=== PATIENT | female | born 1975 | race Caucasian/White ===

== ENCOUNTER → 2018-12-03 09:30 | Outpatient (CLI) | payer OTHER, SELFPAY ==
--- NOTE | 2018-12-03 09:31 | DI.MG.S_ITS ---
BILATERAL DIGITAL SCREENING MAMMOGRAM 3D/2D WITH CAD: 12/03/2018 CLINICAL: Routine screening. Comparison is made to exam dated: 04/26/2017 [facility]. The tissue of both breasts is heterogeneously dense. This may lower the sensitivity of mammography. Current study was also evaluated with a Computer Aided Detection (CAD) system. No significant masses, calcifications, or other findings are seen in either breast. There has been no significant interval change. IMPRESSION: NEGATIVE There is no mammographic evidence of malignancy. A 1 year screening mammogram is recommended. This exam was interpreted at Station ID: [id number]. NOTE: For mammograms, a report in lay terms will be sent to the patient. Approximately 15% of breast malignancies will not be visualized mammographically. In the management of a palpable breast mass, a negative mammogram must not discourage biopsy of a clinically suspicious lesion. Electronically Signed By: Andreas medellin/jose l:12/03/2018 16:45:42 letter sent: Normal Exam ACR BI-RADS Category 1: Negative [id number]
== END ==
PROVIDERS: Visit Provider Student in an Organized Health Care Education/Training Program
DX: Z12.31 Encounter for screening mammogram for malignant neoplasm of breast (principal)
CPT/HCPCS: 77063; 77067

== ENCOUNTER 2019-03-05 20:03 | Emergency (ER) | payer OTHER, SELFPAY ==
[2019-03-05 20:05] VITALS: BP 161/108; PULSE 82; RESP 19; TEMP 36.7; O2SAT 99; BMI 26.4
--- NOTE | 2019-03-05 20:26 | ED.HA ---
HPI - Headache General Chief Complaint: Headache Stated Complaint: headache for a few days Time Seen by Provider: 03/05/19 20:09 Source: patient Mode of arrival: ambulatory Limitations: no limitations History of Present Illness HPI Narrative: Patient is a 44-year-old female here for evaluation of a headache. she was seen in the walk-in clinic couple days ago. Was given a shot of Toradol. According to that note the patient did report improvement of her symptoms after the Toradol however today the patient stated that her headache really was not much better when she was discharged from the clinic. She denies any fevers or neck pain. No other neurologic symptoms. stated that yesterday her headache seemed to improve and potentially even resolved however today symptoms returned. She does state that it feels little bit different today than what it did earlier this week. She was started on amoxicillin during her prior visit for a diagnosed sinus infection however was not started on any decongestants. Related Data Home Medications Medication Instructions Recorded Confirmed aspirin 81 mg PO QDAY #0 02/28/17 11/05/18 multivitamin [Multiple Vitamins] 1 tab PO QDAY #0 02/28/17 11/05/18 Previous Rx's Medication Instructions Recorded propranolol 20 mg tablet 20 mg PO BID #180 tab 12/05/18 amoxicillin 875 mg-potassium 1 tab PO BID 10 Days #20 tab 03/03/19 clavulanate 125 mg tablet Allergies Allergy/AdvReac Type Severity Reaction Status Date / Time No Known Drug Allergies Allergy Unverified 11/05/18 09:23 Review of Systems Constitutional Constitutional: Denies fatigue, Denies fever(s), Denies frequent falls and Reports headache(s) Eyes Eyes: Denies blurry vision, Denies change in vision and Denies photophobia ENT Ears, Nose, Mouth, and Throat: Denies vertigo, Denies dizziness, Denies ear discharge, Denies facial pain, Reports headache(s), Denies neck pain, Denies nose pain, Denies post nasal drip, Denies tinnitus, Denies sinus pressure, Denies sore throat and Denies throat swelling Cardiovascular Cardiovascular: Denies chest pain, Denies palpitations and Denies dyspnea Respiratory Respiratory: Denies cough and Denies dyspnea Gastrointestinal Gastrointestinal: Denies abdominal pain, Denies nausea and Denies vomiting Genitourinary Genitourinary: Denies dysuria Musculoskeletal Musculoskeletal: Denies back pain, Denies myalgias, Denies arthralgias and Denies neck pain Integumentary/Breasts Skin/Breast: Denies lesions and Denies rash Neurologic Neurologic: Denies behavioral changes, Denies vertigo, Denies dizziness, Denies frequent falls and Reports headache(s) Psychiatric Psychiatric: Denies behavioral changes Endocrine Endocrine: Denies fatigue and Denies palpitations Hematologic/Lymphatic Hematologic/Lymphatic: Denies easy bleeding and Denies easy bruising Allergic/Immunologic Allergic/Immunologic: Denies throat swelling [facility] Medical History Chicken pox (Resolved ~1980) Hypertension (Chronic) Ovarian cyst (Chronic) Surgical History (Updated 11/04/18 @ 21:45 by Matilde Layne) Atrial fibrillation (Resolved ~2015) Family History (Updated 03/01/19 @ 20:32 by Matilde Layne) Brother Age: 37 History of palpitations Father Age: 71 Essential hypertension Atrial fibrillation, unspecified type Hyperlipidemia Mother Age: 69 History of skin cancer Grandfather No problems noted. Grandfather History of heart disease Cancer Grandmother Cancer Grandmother Stroke Social History Smoking Status: Never smoker Family History (Updated 03/01/19 @ 20:32 by Matilde Layne) Brother Age: 37 History of palpitations Father Age: 71 Essential hypertension Atrial fibrillation, unspecified type Hyperlipidemia Mother Age: 69 History of skin cancer Grandfather No problems noted. Grandfather History of heart disease Cancer Grandmother Cancer Grandmother Stroke Social History Smoking Status: Never smoker Exam Initial Vital Signs Initial Vital Signs: Vital Signs Temperature 98.1 F 03/05/19 20:05 Pulse Rate 82 03/05/19 20:05 Respiratory Rate 19 03/05/19 20:05 Blood Pressure 161/108 H 03/05/19 20:05 Pulse Oximetry 99 03/05/19 20:05 Const General: cooperative, comfortable, well developed and well groomed Orientation: alert, awake and oriented x3 HENMT Head: normal to inspection and normocephalic Ears: TM normal on the left and TM abnormal bulging on the right; not with effusion and not erythematous Eyes Pupils: PERRL Resp Effort & Inspection: normal respiratory effort Cardio Rate: regular rate Skin Lesions: no lesions Rashes: no rashes Neuro General: alert, awake and oriented x3 Cranial Nerves: CN's II-XI intact bilaterally Cognition: normal cognition Speech: speech normal Gait: normal gait Motor: muscle tone normal throughout Sensory Exam: no sensory deficits noted Extrem General: normal to inspection and capillary refill normal Psych Appearance: grossly normal and well kempt Scores GCS [place] coma scale eye opening: Spontaneous [place] coma scale verbal response: Orientated [place] coma scale motor response: Obey commands Main[place] coma scale total score: 15 Course Orders Ordered: ED Orders 03/05/19 20:26 CT head/brain wo con Stat Vital Signs Vital signs: Vital Signs - 8 hr 03/05/19 20:05 03/05/19 21:08 Temperature 98.1 F Pulse Rate 82 70 Respiratory Rate 19 17 Blood Pressure 161/108 H Blood Pressure [Left Arm] 132/94 H Pulse Oximetry 99 99 MDM - Headache Imaging Data CT scan - head: Radiologist's impression: [place] [address] CT Scan Report Signed Patient: Liss Cuevas CMR#: [id number] : 1975Acct:[id number] Age/Sex: 44 / FDate of Service: 03/05/19 Loc: ED Accession Number: [id number] Procedure: CT head/brain wo con Ordering Provider: Carlo Hagen D.O. PROCEDURE: CT HEAD/BRAIN WO CON INDICATIONS: Right-sided headache for 4 days TECHNIQUE: Noncontrast 4.5 mm thick angled axial sections acquired from the foramen magnum to the vertex, with coronal and sagittal reformats. For radiation dose reduction, the following was used: automated exposure control, adjustment of mA and/or kV according to patient size. COMPARISON: None. FINDINGS: Image quality: Excellent. CSF spaces: Basal cisterns are patent. No extra-axial fluid collections. Ventricles are normal in size and shape. Brain: No midline shift. No intracranial masses or hemorrhage. Man[place]-white matter interface is normal. Skull and face: Calvarium and visualized facial bones are intact, without suspicious lesions. Sinuses: Visualized sinuses and mastoids are clear. IMPRESSION: No acute intracranial disease process. Dictated by: Wilda Mazariegos MD, PhD on 03/05/2019 at 20:44 Approved by: Wilda Mazariegos MD, PhD on 03/05/2019 at 20:45 [facility] Narrative Medical decision making narrative: Patient has a normal neuro exam. She does have fluid behind the right tympanic membrane. She stated that she does get worsening headache when she bends over. Her symptoms very well could be sinus issues. She is currently on antibiotics. Will start her on decongestants. Had a long discussion regarding her symptoms. patient was very concerned about her symptoms. I informed her that felt that head CT would be relatively unhelpful in her situation is I felt it she had a low likelihood of having an intracranial mass or hemorrhage. she stated that she would like the head CT despite our conversations of the risks and benefits. This ultimately was unremarkable. I did inform her that to continue the workup for subarachnoid hemorrhage we would need to perform a lumbar puncture. Informed her that I do have a low suspicion that this was the cause of her symptoms she agreed and would like to hold on the lumbar puncture. She denies any IV medications here in the emergency department. I do suspect that this is a sinus headache. We discussed return precautions and follow-up instructions. She expressed understanding and agreement with plan. Discharge Plan Departure Patient Disposition: Home Clinical Impression: Headache Qualifiers: Headache type: unspecified Headache chronicity pattern: unspecified pattern Intractability: not intractable Qualified Code(s): R51 - Headache Discharge Date/Time: 03/05/19 21:13 Instructions: DI for Headache Activity Restrictions/Additional Instructions: Recommend that you start on a decongestant such as Claritin or Soumya or Zyrtec or 1 of the generic versions these. You can also start on Nasonex or Flonase or the generic versions of these. Contact your primary provider for follow-up. Continue your antibiotics. Prescriptions: No Action amoxicillin-pot clavulanate [Augmentin] 875-125 mg tablet 1 tab PO BID 10 Days Qty: 20 RF: 0 multivitamin [Multiple Vitamins] 1 EACH tablet 1 tab PO QDAY Qty: 0 RF: 0 aspirin 81 MG tablet,delayed release (DR/EC) 81 mg PO QDAY Qty: 0 RF: 0 propranolol 20 mg tablet 20 mg PO BID Qty: 180 RF: 1 Referrals: Raghu Machado MD [Primary Care Provider] -
--- NOTE | 2019-03-05 20:58 | PC.NURSE ---
Pt reports has had headache since saturday. Was seen at walkin clinic on saturday. Reports headache started to feel better until this evening when pain started again but different. states for electric shock with dizziness.
[2019-03-05 21:08] VITALS: BP 132/94; PULSE 70; RESP 17; O2SAT 99
== END 2019-03-05 21:13 | disposition home or self-care (01) ==
PROVIDERS: Emergency Provider Emergency Medicine; PCP Student in an Organized Health Care Education/Training Program
DX: R51 Headache (principal)
CPT/HCPCS: 70450; 99282; 99284

== ENCOUNTER → 2019-03-25 07:09 | Outpatient (CLI) | payer OTHER, SELFPAY ==
[2019-03-25 08:25] LABS: Alanine Aminotransferase 12 IU/L (9-52); Albumin 4.6 g/dL (3.5-5.0); Albumin Globulin Ratio 1.7 (1.0-2.8); Alkaline Phosphatase 36 U/L (38-126); Aspartate Aminotransferase 22 IU/L (14-36); BUN Creatinine Ratio 18.6 (6-22); Bilirubin Total 0.7 mg/dL (0.2-1.3); Blood Urea Nitrogen 13 mg/dL (7-17); Calcium 9.7 mg/dL (8.4-10.2); Carbon Dioxide 27 mmol/L (22-32); Chloride 104 mmol/L (98-107); Cholesterol 170 mg/dL (140-199); Estimated Glomerular Filt Rate > 60.0 mL/min (>60); Globulin 2.7 g/dL (1.7-4.1); Glucose 113 mg/dL (70-100); HDL Cholesterol 61 mg/dL (40-60); HEMOLYSIS < 15 (0-50); LDL Cholesterol Calculated 93 mg/dL (<100); Potassium 4.4 mmol/L (3.4-5.1); Sodium 140 mmol/L (137-145); Total Protein 7.3 g/dL (6.3-8.2); Triglycerides 78 mg/dL (35-150)
[2019-03-25 08:38] LABS: Free T3, Triiodothyronine Free 3.51 pg/mL (2.77-5.27)
[2019-03-25 08:52] LABS: TSH w/ Reflex to FT4 2.36 uIU/mL (0.47-4.68)
[2019-03-25 09:11] LABS: Vitamin D 25 Hydroxy (D3) 31.4 ng/mL (30.0-100.0)
== END ==
PROVIDERS: PCP Student in an Organized Health Care Education/Training Program; Visit Provider Internal Medicine Cardiovascular Disease
DX: I48.0 Paroxysmal atrial fibrillation (principal); I48.91 Unspecified atrial fibrillation; F41.1 Generalized anxiety disorder; Z13.220 Encounter for screening for lipoid disorders; E55.9 Vitamin D deficiency, unspecified
CPT/HCPCS: 36415; 80053; 80061; 82306; 84443; 84481

== ENCOUNTER 2020-02-05 01:01 | Emergency (ER) | payer OTHER, SELFPAY ==
[2020-02-05] VITALS (16 sets, daily range): BP systolic 108–123; BP diastolic 77–86; PULSE 72–161; RESP 13–22; TEMP 36.6; O2SAT 91–99; BMI 26.4
--- NOTE | 2020-02-05 01:02 | ED_ITS ---
HPI - SOB/Dyspnea General Chief Complaint: Arrhythmia/Palpitations Stated Complaint: difficulty breathing has a fib/states in afib Time Seen by Provider: 02/05/20 01:02 Source: patient and family Mode of arrival: Ambulatory Limitations: no limitations History of Present Illness HPI Narrative: 44-year-old female nonsmoker with history of atrial fibrillation with scheduled ablation for next month with Cardiology at [place] presents with her and a chief complaint of a few days of rapid heart rate, palpit ations, shortness of breath and ?gurgling? in her chest. She is not dizzy, weak or lightheaded. She does not take any anticoagulation. She denies any change in medications or diet. She has had an ablation in the past and has failed attempts at electrocardioversion on multiple occasions. She denies any runny nose, sore throat, cough, or fever. She denies any exposure to persons known to be positive for COVID-19. MD Complaint: shortness of breath Onset (ago): day(s) Severity: moderate Consistency/Duration: intermittent Relieving factors: nothing Exacerbating factors: nothing Treatment prior to arrival: none Related Data Home oxygen amount: none Home Medications Medication Instructions Recorded Confirmed aspirin 81 mg PO QDAY #0 02/28/17 11/05/18 multivitamin [Multiple Vitamins] 1 tab PO QDAY #0 02/28/17 11/05/18 flecainide 50 mg tablet 50 mg PO Q12H 07/10/19 Previous Rx's Medication Instructions Recorded propranolol 20 mg tablet 20 mg PO BID #180 tab 07/23/19 Allergies Allergy/AdvReac Type Severity Reaction Status Date / Time No Known Drug Allergies Allergy Unverified 11/05/18 09:23 Review of Systems Constitutional Constitutional: Denies chills, Denies fatigue, Denies fever(s), Denies frequent falls, Denies lethargy and Denies weakness Eyes Eyes: Denies change in vision, Denies eye discharge, Denies irritation and Denies loss of vision ENT Ears, Nose, Mouth, and Throat: Denies change in voice, Denies dizziness, Denies neck pain, Denies sore throat and Denies throat swelling Cardiovascular Cardiovascular: Denies chest pain, Denies irregular heart rhythm, Denies lightheadedness, Reports palpitations, Reports dyspnea, Denies dyspnea on exertion and Denies orthopnea Respiratory Respiratory: Denies cough, Reports dyspnea, Denies dyspnea on exertion and Denies wheezing Gastrointestinal Gastrointestinal: Denies abdominal pain, Denies change in bowel habits, Denies diarrhea, Denies nausea and Denies vomiting Musculoskeletal Musculoskeletal: Denies neck pain and Denies numbness Integumentary/Breasts Skin/Breast: Denies pruritus, Denies erythema, Denies rash and Denies wounds Neurologic Neurologic: Denies behavioral changes, Denies confusion, Denies dizziness, Denies frequent falls, Denies loss of vision, Denies numbness and Denies weakness Psychiatric Psychiatric: Denies anxiety, Denies behavioral changes, Denies confusion, Denies depression, Denies homicidal ideation and Denies suicidal ideation Endocrine Endocrine: Denies fatigue, Denies flushing and Reports palpitations Hematologic/Lymphatic Hematologic/Lymphatic: Denies easy bruising Allergic/Immunologic Allergic/Immunologic: Denies urticaria, Denies throat swelling and Denies wheezing Patient History Medical History Chicken pox (Resolved ~1980) Hypertension (Chronic) Ovarian cyst (Chronic) Surgical History Atrial fibrillation (Resolved ~2015) Family History Brother Age: 38 History of palpitations Father Age: 72 Essential hypertension Atrial fibrillation, unspecified type Hyperlipidemia Mother Age: 70 History of skin cancer Grandfather No problems noted. Grandfather History of heart disease Cancer Grandmother Cancer Grandmother Stroke Social History Smoking Status: Never smoker Smoking Status: Never smoker Exam Narrative Exam Narrative: GENERAL: [44] year old patient appears stated age. Well- nourished, well-developed patient, in moderate distress. Anxious HEAD: Atraumatic. Normocephalic. EYES: Pupils equal round and reactive. Extraocular motions intact. No scleral icterus. No injection or drainage. ENT: Nose without bleeding, purulent drainage. Throat without erythema, tonsillar hypertrophy or exudate. Airway patent. NECK: Trachea midline. Non tender CARDIOVASCULAR: Rapid and irregular rhythm without murmurs, gallops, or rubs. RESPIRATORY: Clear to auscultation. Breath sounds equal bilaterally. No wheezes, rales, or rhonchi. GASTROINTESTINAL: Abdomen soft, non-tender, nondistended. EXTREMITIES: No edema or joint tenderness. BACK: Nontender without deformity or crepitance. No flank tenderness. NEURO: AOx3. SKIN: No rash or erythema of visible areas Initial Vital Signs Initial Vital Signs: Vital Signs Pulse Oximetry 98 02/05/20 01:05 Course Orders Ordered: ED Orders 02/05/20 01:05 EKG-12 Lead Stat 02/05/20 01:11 XR chest 1V Stat 02/05/20 01:13 Basic Metabolic Panel Stat Complete Blood Count AUTO DIFF Stat Magnesium Stat Thyroid Stimulating Hormone Stat Troponin & CK Cardiac Panel Stat Sodium Chloride (Normal Saline 0.9%) 1,000 mls @ 150 mls/hr IV CONT REAL Last Infusion: 02/05/20 05:12 Dose: 0 mls/hr Documented by: Admin: 02/05/20 01:27 Dose: 150 mls/hr Documented by: SARANYA DILTIAZEM (Diltiazem 125 Mg/125 Ml-D5w) 125 mg in 125 mls @ 5 mls/hr IV TITRATE REAL; Protocol Last Titration: 02/05/20 05:15 Dose: 0 mg/hr, 0 mls/hr Documented by: Titration: 02/05/20 02:05 Dose: 10 mg/hr, 10 mls/hr Documented by: Admin: 02/05/20 01:27 Dose: 5 mg/hr, 5 mls/hr Documented by: SARANYA Discontinued Medications Diltiazem HCl (Cardizem) 10 mg IV NOW ONE Stop: 02/05/20 01:11 Last Admin: 02/05/20 01:26 Dose: 10 mg Documented by: SARANYA Lorazepam (Ativan) 0.5 mg IV NOW ONE Stop: 02/05/20 02:53 Last Admin: 02/05/20 03:08 Dose: 0.5 mg Documented by: SARANYA Reevaluation(s) Reevaluation #1: HR down to upper 90s after cardizem push. Drip ordered patient doing well on drip at 10 (in 90s-110s) call to Dr. Kwok (cardio at [facility]) who wishes patient be sent up there given her history and upcoming ablation. patient is [place] patient, call to [facility] who gives blessing to transfer patient to [facility] to maintain continuity of care 0350 - Dr. Clifford (hospitalist at [facility]) is happy to accept. [facility] sup ervisor calls back stating there is an issue with bed availability which should resolve by 0700 and that we should send patient to ED. 0400 - call to Dr. Felix in the ED who is happy to accept the patient any time. [facility] contacted for transport. Patient and family in complete agreement with the plan. Vital Signs Vital signs: Vital Signs - 8 hr 02/05/20 01:05 02/05/20 01:10 02/05/20 01:11 Temperature 98 F Pulse Rate 158 H 72 Respiratory Rate 22 Blood Pressure 118/85 118/85 Pulse Oximetry 98 98 99 02/05/20 01:26 02/05/20 01:30 02/05/20 01:39 Temperature Pulse Rate 161 H 153 H 126 H Respiratory Rate 14 16 Blood Pressure 118/85 116/85 Pulse Oximetry 96 93 02/05/20 02:00 02/05/20 02:01 02/05/20 02:30 Temperature Pulse Rate 114 H 121 H 106 H Respiratory Rate 21 20 18 Blood Pressure 114/82 Pulse Oximetry 93 94 93 02/05/20 02:31 02/05/20 03:00 02/05/20 03:04 Temperature Pulse Rate 107 H 102 H 100 H Respiratory Rate 16 13 15 Blood Pressure 114/85 115/77 Pulse Oximetry 93 93 93 02/05/20 03:30 02/05/20 04:00 02/05/20 04:30 Temperature Pulse Rate 107 H 97 H 99 H Respiratory Rate 20 15 21 Blood Pressure 123/86 108/80 Pulse Oximetry 91 92 95 02/05/20 04:31 Temperature Pulse Rate 93 H Respiratory Rate 19 Blood Pressure 113/77 Pulse Oximetry 95 MDM - SOB/Dyspnea Lab Data Result diagrams: 02/05/20 01:13 02/05/20 01:13 Labs: Lab Results 02/05/20 02/05/20 02/05/20 Range/Units 01:13 01:13 01:13 WBC 13.0 H (4.5-11.0) X10^3/uL RBC 4.97 (4.0-5.2) X10^6/uL Hgb 15.6 (12.0-16.0) g/dL Hct 46.7 H (36-46) % MCV 93.9 (80-100) fL MCH 31.4 (26-34) PG MCHC 33.4 (30-36) % RDW 15.1 H (11.6-14.8) % Plt Count 261 (150-400) X10^3/uL Neut % (Auto) 45.9 L (50-75) % Lymph % (Auto) 46.3 H (25-40) % [place] % (Auto) 5.9 (3-14) % Eos % (Auto) 1.1 L (2-4) % Baso % (Auto) 0.8 (0-2) % Neut # (Auto) 6000 (1881-8411) /uL Lymph # (Auto) 6000 H (5796-7762) /uL [place] # (Auto) 800 (0-900) /uL Eos # (Auto) 100 (0-450) /uL Baso # (Auto) 100 (0-100) /uL Sodium 134 L (137-145) mmol/L Potassium 4.5 (3.4-5.1) mmol/L Chloride 105 (98-107) mmol/L Carbon Dioxide 17 L (22-32) mmol/L BUN 14 (7-17) mg/dL Creatinine 0.74 (0.52-1.04) mg/dL Estimated GFR > 60.0 (>60) mL/min BUN/Creatinine Ratio 18.9 (6-22) Glucose 149 H (70-100) mg/dL Calcium 9.7 (8.4-10.2) mg/dL Magnesium 1.9 (1.6-2.3) mg/dL Total Creatine Kinase 40 (30-135) U/L CK-MB (CK-2) TNP CK-MB (CK-2) Rel Index TNP Troponin I 0.015 (0.01-0.034) ng/mL TSH 8.03 H (0.47-4.68) uIU/mL ECG Data Attestation: I personally reviewed and interpreted this ECG as follows: Interpretation: Rapid AFib, rate 162. No ST depressions or elevations. Critical Care Time Critical Care Time Critical Care Time: Yes Total Critical Care Time: 30 Attestation: The high probability of a clinically significant, sudden or life threatening deterioration of the [CV] system(s) required my full and direct attention, intervention and personal management. The aggregate critical care time was [30] minutes. This time is in addition to time spent performing reported procedures but includes the following: [x] Data Review and interpretation [x] Patient assessment and monitoring of vital signs [x] Documentation [x] Medication orders and management Discharge Plan Departure Patient Disposition: [facility] Clinical Impression: Atrial fibrillation with rapid ventricular response Prescriptions: No Action multivitamin [Multiple Vitamins] 1 EACH tablet 1 tab PO QDAY Qty: 0 RF: 0 aspirin 81 MG tablet,delayed release (DR/EC) 81 mg PO QDAY Qty: 0 RF: 0 flecainide 50 mg tablet 50 mg PO Q12H RF: 0 propranolol 20 mg tablet 20 mg PO BID Qty: 180 RF: 3 Referrals: Raghu Machado MD [Primary Care Provider] -
--- NOTE | 2020-02-05 01:11 | DI.RAD.S_ITS ---
PROCEDURE: XR CHEST 1V INDICATIONS: chest pain, palpitations TECHNIQUE: One view of the chest was acquired. COMPARISON: None. FINDINGS: Surgical changes and devices: None. Lungs and pleura: Bilateral interstitial prominence which septal thickening. Lungs are clear. No pleural effusions or pneumothorax. Mediastinum: Mediastinal contours appear normal. Heart size is normal. Bones and chest wall: No suspicious bony lesions. Overlying soft tissues appear unremarkable. IMPRESSION: Bilateral interstitial prominence with septal thickening. Differential diagnosis include interstitial lung disease versus pulmonary edema. Dictated by: Kyree Jo M.D. on 02/05/2020 at 9:40 Approved by: Kyree Jo M.D. on 02/05/2020 at 9:41
[2020-02-05 01:24] LABS: Add Manual Diff / Slide Review NO; Basophils Absolute Auto 100 /uL (0-100); Basophils Percent Auto 0.8 % (0-2); Eosinophils Absolute Auto 100 /uL (0-450); Eosinophils Percent Auto 1.1 % (2-4); Hematocrit 46.7 % (36-46); Hemoglobin 15.6 g/dL (12.0-16.0); Lymphocytes Absolute Auto 6000 /uL (1100-4500); Lymphocytes Percent Auto 46.3 % (25-40); Mean Corpuscular HGB Conc 33.4 % (30-36); Mean Corpuscular Hemoglobin 31.4 PG (26-34); Mean Corpuscular Volume 93.9 fL (80-100); Monocytes Absolute Auto 800 /uL (0-900); Monocytes Percent Auto 5.9 % (3-14); Neutrophils Absolute Auto 6000 /uL (1500-7000); Neutrophils Percent Auto 45.9 % (50-75); Platelet Count 261 X10^3/uL (150-400); Red Blood Cell Count 4.97 X10^6/uL (4.0-5.2); Red Cell Distribution Width 15.1 % (11.6-14.8)
[2020-02-05] MEDS: dilTIAZem 5 MG/ML SDV 10 MG IV (01:26)
[2020-02-05] MEDS: DILTIAZEM 125 MG/125 ML PIGGYBACK IV (01:27)
[2020-02-05] MEDS: SODIUM CHLORIDE 0.9% 1,000 ML 150 ML IV (01:27)
[2020-02-05 01:31] LABS: BUN Creatinine Ratio 18.9 (6-22); Blood Urea Nitrogen 14 mg/dL (7-17); Calcium 9.7 mg/dL (8.4-10.2); Carbon Dioxide 17 mmol/L (22-32); Chloride 105 mmol/L (98-107); Creatine Kinase 40 U/L (30-135); Estimated Glomerular Filt Rate > 60.0 mL/min (>60); Glucose 149 mg/dL (70-100); HEMOLYSIS < 15 (0-50); Magnesium 1.9 mg/dL (1.6-2.3); Potassium 4.5 mmol/L (3.4-5.1); Sodium 134 mmol/L (137-145)
[2020-02-05 01:43] LABS: Troponin I 0.015 ng/mL (0.01-0.034)
[2020-02-05 02:16] LABS: Thyroid Stimulating Hormone 8.03 uIU/mL (0.47-4.68)
[2020-02-05] MEDS: LORazepam 2 MG/ML INJ 0.5 MG IV (03:08)
== END 2020-02-05 05:32 | disposition short-term general hospital (02) ==
PROVIDERS: Emergency Provider Emergency Medicine; PCP Student in an Organized Health Care Education/Training Program
DX: I48.20 Chronic atrial fibrillation, unspecified (principal); R06.02 Shortness of breath
CPT/HCPCS: 36415; 71045; 80048; 82550; 83735; 84443; 84484; 85025; 93005; 96365; 96366; 96375; 99284; 99291; J2060

== ENCOUNTER → 2020-02-10 08:30 | Outpatient (CLI) | payer OTHER, SELFPAY ==
[2020-02-10 09:27] LABS: BUN Creatinine Ratio 15.5 (6-22); Blood Urea Nitrogen 11 mg/dL (7-17); Carbon Dioxide 22 mmol/L (22-32); Chloride 105 mmol/L (98-107); Estimated Glomerular Filt Rate > 60.0 mL/min (>60); Glucose 107 mg/dL (70-100); HEMOLYSIS < 15 (0-50); Potassium 4.5 mmol/L (3.4-5.1); Sodium 138 mmol/L (137-145)
== END ==
PROVIDERS: PCP Student in an Organized Health Care Education/Training Program; Referring Provider Internal Medicine Cardiovascular Disease; Visit Provider Internal Medicine Cardiovascular Disease
DX: I48.0 Paroxysmal atrial fibrillation (principal)
CPT/HCPCS: 36415; 80048

== ENCOUNTER 2020-02-14 19:39 | Emergency (ER) | payer OTHER, SELFPAY ==
[2020-02-14] VITALS (60 sets, daily range): BP systolic 91–144; BP diastolic 55–107; PULSE 88–188; RESP 14–28; TEMP 36.7; O2SAT 92–99
--- NOTE | 2020-02-14 19:41 | ED_ITS ---
HPI - Abdominal Pain General Chief Complaint: Shortness of Breath/Dyspnea Stated Complaint: abdominal discomfort,weakness Time Seen by Provider: 02/14/20 19:41 Source: patient Mode of arrival: Ambulatory Limitations: no limitations History of Present Illness HPI narrative: 44-year-old female never smoker with history of atrial fibrillation presents with a week of worsening shortness of breath, fatigue, and difficulty sleeping. She was seen one week ago under fairly similar circumstances and was transferred to [place] a.. She has established with electro physiology (Dr. Steiner) and has a scheduled ablation. She was admitted overnight and discharged on Pradaxa and had been switched from propranolol to metoprolol. Over the course of the week she has had the above- stated symptoms in addition to epigastric pain that is worse with eating or drinking and radiates to her back. She has had no fever chills and admits to nausea but denies any vomiting. Related Data Home Medications Medication Instructions Recorded Confirmed multivitamin [Multiple Vitamins] 1 tab PO QDAY #0 02/28/17 02/14/20 dabigatran etexilate [Pradaxa] 150 mg PO BID 02/14/20 02/14/20 metoprolol succinate 25 mg PO DAILY 02/14/20 02/14/20 Previous Rx's Medication Instructions Recorded lorazepam 0.5 mg tablet 0.5 mg PO BID PRN #60 tab 02/10/20 Allergies Allergy/AdvReac Type Severity Reaction Status Date / Time No Known Drug Allergies Allergy Verified 02/14/20 19:50 Review of Systems Constitutional Constitutional: Denies chills, Denies fatigue, Denies fever(s), Denies frequent falls, Denies lethargy and Denies weakness Eyes Eyes: Denies change in vision, Denies eye discharge, Denies irritation and Denies loss of vision ENT Ears, Nose, Mouth, and Throat: Denies change in voice, Denies dizziness, Denies neck pain, Denies sore throat and Denies throat swelling Cardiovascular Cardiovascular: Reports chest pain, Reports irregular heart rhythm, Reports palpitations, Reports dyspnea, Reports dyspnea on exertion and Denies orthopnea Respiratory Respiratory: Denies cough, Reports dyspnea, Reports dyspnea on exertion and Denies wheezing Gastrointestinal Gastrointestinal: Reports abdominal pain, Denies change in bowel habits, Denies diarrhea, Reports nausea and Denies vomiting Musculoskeletal Musculoskeletal: Denies neck pain and Denies numbness Integumentary/Breasts Skin/Breast: Denies pruritus, Denies erythema, Denies rash and Denies wounds Neurologic Neurologic: Denies behavioral changes, Denies confusion, Denies dizziness, Denies frequent falls, Denies loss of vision, Denies numbness and Denies weakness Psychiatric Psychiatric: Denies anxiety, Denies behavioral changes, Denies confusion, Denies depression, Denies homicidal ideation and Denies suicidal ideation Endocrine Endocrine: Denies fatigue, Denies flushing and Reports palpitations Hematologic/Lymphatic Hematologic/Lymphatic: Denies easy bruising Allergic/Immunologic Allergic/Immunologic: Denies urticaria, Denies throat swelling and Denies wheezing Patient History Medical History Chicken pox (Resolved ~1980) Hypertension (Chronic) Ovarian cyst (Chronic) Surgical History Atrial fibrillation (Resolved ~2015) Family History Brother Age: 38 History of palpitations Father Age: 72 Essential hypertension Atrial fibrillation, unspecified type Hyperlipidemia Mother Age: 70 History of skin cancer Grandfather No problems noted. Grandfather History of heart disease Cancer Grandmother Cancer Grandmother Stroke Social History Smoking Status: Never smoker Smoking Status: Never smoker alcohol intake frequency: a few times a week Substance Use Type: does not use Exam Narrative Exam Narrative: GENERAL: [44] year old patient appears stated age. Well- nourished, well-developed patient, in moderate distress, clearly short of breath. Anxious HEAD: Atraumatic. Normocephalic. EYES: Pupils equal round and reactive. Extraocular motions intact. No scleral icterus. No injection or drainage. ENT: Nose without bleeding, purulent drainage. Throat without erythema, tonsillar hypertrophy or exudate. Airway patent. NECK: Trachea midline. Non tender CARDIOVASCULAR: Tachycardic and irregular rhythm without murmurs, gallops, or rubs. RESPIRATORY: Tachypnea, 5-7 word sentences, crackles in bilateral bases GASTROINTESTINAL: Abdomen soft, tender in the epigastrium and right upper quadrant nondistended. EXTREMITIES: No edema or joint tenderness. BACK: Nontender without deformity or crepitance. No flank tenderness. NEURO: AOx3. SKIN: No rash or erythema of visible areas Initial Vital Signs Initial Vital Signs: Vital Signs Temperature 98.1 F 02/14/20 19:40 Pulse Rate 88 02/14/20 19:40 Respiratory Rate 25 H 02/14/20 19:40 Blood Pressure 131/107 H 02/14/20 19:40 Pulse Oximetry 96 02/14/20 19:40 Course Course Course Narrative: Given her history on beta-blockers patient was initially started on esmolol. After call to hospitalist we elected to switch her to Cardizem which she tolerated well last time and would allow her to be admitted on a general medical floor as opposed to ICU. Her heart rate has responded nicely and she is now down in the 110s. Her shortness of breath and anxiety have greatly improved. Her epigastric pain is confirmed to be acute acalculous cholecystitis based on labs and imaging. I have spoken with the general surgeon (Dr. Chambers) who is in agreement with keeping her NPO, administering fluids and antibiotics and allowing medicine to sort through her tachycardia and hyponatremia. I have spoken with [facility] who gives their blessing for this transfer Orders Ordered: ED Orders 02/14/20 19:46 XR chest 1V Stat 02/14/20 19:48 EKG-12 Lead Stat 02/14/20 20:00 BNP [NT-proBNP (BNP-Adult 18+)] Stat Complete Blood Count AUTO DIFF Stat Comprehensive Metabolic Panel Stat Lipase Stat Partial Thromboplastin Time Stat Prothrombin Time INR Stat Troponin & CK Cardiac Panel Stat 02/14/20 20:46 US abdomen limited Stat DILTIAZEM (Diltiazem 125 Mg/125 Ml-D5w) 125 mg in 125 mls @ 5 mls/hr IV TITRATE REAL; Protocol Last Titration: 02/14/20 23:10 Dose: 10 mg/hr, 10 mls/hr Documented by: Admin: 02/14/20 22:21 Dose: 5 mg/hr, 5 mls/hr Documented by: GERALD Discontinued Medications Esmolol HCl (Brevibloc) 2.5 gm in 250 mls @ 25.855 mls/hr IV TITRATE REAL; Protocol Last Titration: 08/23/20 22:17 Dose: 0 mcg/kg/min, 0 mls/hr Documented by: Titration: 02/14/20 20:33 Dose: 98.63 mcg/kg/min, 51 mls/hr Documented by: Titration: 02/14/20 20:26 Dose: 48.35 mcg/kg/min, 25 mls/hr Documented by: Admin: 02/14/20 20:22 Dose: 493.14 mcg/kg/min, 255 mls/hr Documented by: GERALD Piperacillin/Tazobactam/Dextrose (Zosyn) 3.375 gm in 50 mls @ 100 mls/hr IV NOW ONE Stop: 02/14/20 22:18 Last Admin: 02/14/20 21:58 Dose: 100 mls/hr Documented by: GERALD Sodium Chloride (Normal Saline 0.9%) 1,000 mls @ 1,000 mls/hr IV BOLUS ONE Stop: 02/14/20 23:18 Last Admin: 02/14/20 22:37 Dose: Not Given Documented by: EDWIN Piperacillin/Tazobactam/Dextrose (Zosyn) 3.375 gm in 50 mls @ 100 mls/hr IV NOW ONE Stop: 02/14/20 22:51 Last Admin: 02/14/20 22:37 Dose: Not Given Documented by: EDWIN Ketorolac Tromethamine (Toradol) 15 mg IV NOW ONE Stop: 02/14/20 22:20 Last Admin: 02/14/20 22:37 Dose: Not Given Documented by: EDWIN Consultations Consultation #1: [facility] Physician at [facility] for transfer Consultation #2: Dr. Samuels (hospitalist at [facility]) happy to accept. Suggests switching Esmolol to Cardizem, and call to surgery prior to transfer if possible Consultation #3: Dr. Chambers (Surgery at [place]) agrees with ABX and transfer to medicine Vital Signs Vital signs: Vital Signs - 8 hr 02/14/20 19:40 02/14/20 19:43 02/14/20 19:53 Temperature 98.1 F Pulse Rate 88 94 H 188 H Respiratory Rate 25 H Blood Pressure 131/107 H 131/107 H Pulse Oximetry 96 99 95 02/14/20 19:56 02/14/20 20:00 02/14/20 20:01 Temperature Pulse Rate 171 H 173 H 169 H Respiratory Rate 22 22 27 H Blood Pressure 129/104 H 141/92 H Pulse Oximetry 96 95 96 02/14/20 20:15 02/14/20 20:20 02/14/20 20:24 Temperature Pulse Rate 176 H 169 H 172 H Respiratory Rate 27 H 28 H 22 Blood Pressure 130/105 H 141/91 H Pulse Oximetry 96 96 96 02/14/20 20:25 02/14/20 20:26 02/14/20 20:30 Temperature Pulse Rate 173 H 162 H 156 H Respiratory Rate 21 26 H 23 Blood Pressure 140/81 Pulse Oximetry 96 96 97 02/14/20 20:31 02/14/20 20:35 02/14/20 20:40 Temperature Pulse Rate 159 H 152 H 150 H Respiratory Rate 20 24 24 Blood Pressure 144/75 H 123/82 Pulse Oximetry 96 95 95 02/14/20 20:42 02/14/20 20:45 02/14/20 20:50 Temperature Pulse Rate 145 H 143 H 134 H Respiratory Rate 23 27 H 21 Blood Pressure 109/69 105/72 96/66 Pulse Oximetry 94 95 95 02/14/20 20:55 02/14/20 21:00 02/14/20 21:05 Temperature Pulse Rate 143 H 139 H 137 H Respiratory Rate 17 20 25 H Blood Pressure 95/61 108/72 102/70 Pulse Oximetry 95 94 93 02/14/20 21:10 02/14/20 21:15 02/14/20 21:20 Temperature Pulse Rate 138 H 143 H 147 H Respiratory Rate 15 16 19 Blood Pressure 106/59 L 101/55 L 93/68 Pulse Oximetry 97 97 95 02/14/20 21:25 02/14/20 21:30 02/14/20 21:33 Temperature Pulse Rate 138 H 137 H 141 H Respiratory Rate 19 19 20 Blood Pressure 94/77 93/66 Pulse Oximetry 94 92 94 02/14/20 21:35 02/14/20 21:40 02/14/20 21:45 Temperature Pulse Rate 143 H 140 H 136 H Respiratory Rate 18 18 14 Blood Pressure 96/76 94/75 95/78 Pulse Oximetry 94 93 95 02/14/20 21:50 02/14/20 21:55 02/14/20 22:00 Temperature Pulse Rate 138 H 135 H 136 H Respiratory Rate 16 19 25 H Blood Pressure 110/92 H 103/83 109/80 Pulse Oximetry 93 92 95 02/14/20 22:05 02/14/20 22:06 02/14/20 22:10 Temperature Pulse Rate 141 H 125 H 124 H Respiratory Rate 18 17 17 Blood Pressure 91/74 Pulse Oximetry 94 93 95 02/14/20 22:15 02/14/20 22:16 02/14/20 22:20 Temperature Pulse Rate 137 H 133 H 141 H Respiratory Rate 19 18 18 Blood Pressure 128/60 120/62 Pulse Oximetry 95 94 95 02/14/20 22:25 02/14/20 22:30 02/14/20 22:31 Temperature Pulse Rate 146 H 152 H 159 H Respiratory Rate 23 26 H 24 Blood Pressure 112/71 117/88 Pulse Oximetry 96 95 96 02/14/20 22:35 02/14/20 22:36 02/14/20 22:40 Temperature Pulse Rate 158 H 154 H 155 H Respiratory Rate 23 22 18 Blood Pressure 114/79 118/90 Pulse Oximetry 95 95 95 02/14/20 22:45 02/14/20 22:50 02/14/20 22:55 Temperature Pulse Rate 157 H 154 H 147 H Respiratory Rate 19 18 18 Blood Pressure 114/84 104/85 105/88 Pulse Oximetry 96 96 96 02/14/20 23:00 02/14/20 23:05 02/14/20 23:15 Temperature Pulse Rate 154 H 152 H 135 H Respiratory Rate 22 16 Blood Pressure 105/86 118/94 H Pulse Oximetry 95 95 96 02/14/20 23:20 02/14/20 23:25 02/14/20 23:30 Temperature Pulse Rate 150 H 150 H 141 H Respiratory Rate 21 19 18 Blood Pressure Pulse Oximetry 98 96 96 02/14/20 23:35 02/14/20 23:38 02/14/20 23:40 Temperature Pulse Rate 138 H 134 H 137 H Respiratory Rate 17 17 19 Blood Pressure 118/94 H Pulse Oximetry 97 97 95 02/14/20 23:45 02/14/20 23:50 02/14/20 23:55 Temperature Pulse Rate 127 H 126 H 125 H Respiratory Rate 15 16 17 Blood Pressure 103/71 Pulse Oximetry 96 95 95 02/15/20 00:00 Temperature Pulse Rate 124 H Respiratory Rate 18 Blood Pressure 109/67 Pulse Oximetry 94 MDM - Abdominal Pain Lab Data Result diagrams: 02/14/20 20:00 02/14/20 20:00 Labs: Lab Results 02/14/20 02/14/20 02/14/20 Range/Units 20:00 20:00 20:00 WBC 14.1 H (4.5-11.0) X10^3/uL RBC 4.81 (4.0-5.2) X10^6/uL Hgb 15.0 (12.0-16.0) g/dL Hct 44.7 (36-46) % MCV 93.0 (80-100) fL MCH 31.1 (26-34) PG MCHC 33.5 (30-36) % RDW 14.5 (11.6-14.8) % Plt Count 239 (150-400) X10^3/uL Neut % (Auto) 53.4 (50-75) % Lymph % (Auto) 39.5 (25-40) % Winkler % (Auto) 5.8 (3-14) % Eos % (Auto) 0.7 L (2-4) % Baso % (Auto) 0.6 (0-2) % Neut # (Auto) 7500 H (3488-6022) /uL Lymph # (Auto) 5600 H (8368-9601) /uL Winkler # (Auto) 800 (0-900) /uL Eos # (Auto) 100 (0-450) /uL Baso # (Auto) 100 (0-100) /uL PT 17.7 H (10.1-12.7) SECONDS INR 1.6 H (0.9-1.3) APTT 52 H (26.4-36.2) SECONDS Sodium 125 L D (137-145) mmol/L Potassium 4.1 (3.4-5.1) mmol/L Chloride 95 L (98-107) mmol/L Carbon Dioxide 14 L (22-32) mmol/L BUN 9 (7-17) mg/dL Creatinine 0.63 (0.52-1.04) mg/dL Estimated GFR > 60.0 (>60) mL/min BUN/Creatinine Ratio 14.3 (6-22) Glucose 130 H (70-100) mg/dL Calcium 8.9 (8.4-10.2) mg/dL Total Bilirubin 1.9 H (0.2-1.3) mg/dL AST 42 H (14-36) IU/L ALT 31 (<35) IU/L Alkaline Phosphatase 54 (38-126) U/L Total Creatine Kinase 69 (30-135) U/L CK-MB (CK-2) TNP CK-MB (CK-2) Rel Index TNP Troponin I 0.030 (0.01-0.034) ng/mL NT-Pro-B Natriuret Pep (<125) pg/mL Total Protein 6.6 (6.3-8.2) g/dL Albumin 4.3 (3.5-5.0) g/dL Globulin 2.3 (1.7-4.1) g/dL Albumin/Globulin Ratio 1.9 (1.0-2.8) Lipase 73 (23-300) U/L COVID-19 PCR (Negative) 02/14/20 02/14/20 Range/Units 20:00 22:25 WBC (4.5-11.0) X10^3/uL RBC (4.0-5.2) X10^6/uL Hgb (12.0-16.0) g/dL Hct (36-46) % MCV (80-100) fL MCH (26-34) PG MCHC (30-36) % RDW (11.6-14.8) % Plt Count (150-400) X10^3/uL Neut % (Auto) (50-75) % Lymph % (Auto) (25-40) % Winkler % (Auto) (3-14) % Eos % (Auto) (2-4) % Baso % (Auto) (0-2) % Neut # (Auto) (7410-1102) /uL Lymph # (Auto) (6272-3291) /uL Winkler # (Auto) (0-900) /uL Eos # (Auto) (0-450) /uL Baso # (Auto) (0-100) /uL PT (10.1-12.7) SECONDS INR (0.9-1.3) APTT (26.4-36.2) SECONDS Sodium (137-145) mmol/L Potassium (3.4-5.1) mmol/L Chloride (98-107) mmol/L Carbon Dioxide (22-32) mmol/L BUN (7-17) mg/dL Creatinine (0.52-1.04) mg/dL Estimated GFR (>60) mL/min BUN/Creatinine Ratio (6-22) Glucose (70-100) mg/dL Calcium (8.4-10.2) mg/dL Total Bilirubin (0.2-1.3) mg/dL AST (14-36) IU/L ALT (<35) IU/L Alkaline Phosphatase (38-126) U/L Total Creatine Kinase (30-135) U/L CK-MB (CK-2) CK-MB (CK-2) Rel Index Troponin I (0.01-0.034) ng/mL NT-Pro-B Natriuret Pep 4260 H (<125) pg/mL Total Protein (6.3-8.2) g/dL Albumin (3.5-5.0) g/dL Globulin (1.7-4.1) g/dL Albumin/Globulin Ratio (1.0-2.8) Lipase (23-300) U/L COVID-19 PCR Negativen (Negative) Imaging Data Chest x-ray: Radiologist's Impression: [address] [address] XRay Report Signed Patient: Liss Cuevas [facility]#: [id number] : 1975Acct:[id number] Age/Sex: 44 / FDate of Service: 02/14/20 Loc: ED Accession Number: [id number] Procedure: XR chest 1V Ordering Provider: Vinayak Barragan D.O. PROCEDURE: XR CHEST 1V INDICATIONS: chest pain TECHNIQUE: One view of the chest was acquired. COMPARISON: [facility], , XR CHEST 1V, 02/05/2020, 1:15. FINDINGS: Surgical changes and devices: None. Lungs and pleura: Mild interstitial pulmonary opacity. No pneumothorax. Trace bilateral pleural effusions. Mediastinum: Mediastinal contours appear normal. Heart size is normal. Bones and chest wall: No suspicious bony lesions. Overlying soft tissues appear unremarkable. IMPRESSION: Mild edema versus atypical pneumonia. Small bilateral pleural effusions. Dictated by: Lasha Monteiro M.D. on 02/14/2020 at 20:26 Approved by: Lasha Monteiro M.D. on 02/14/2020 at 20:26 US - abdomen: Radiologist's Impression: [address] [address] Ultrasound Report Signed Patient: Liss Cuevas CMR#: [id number] : 1975Acct:[id number] Age/Sex: 44 / FDate of Service: 02/14/20 Loc: ED Accession Number: [id number] Procedure: US abdomen limited Ordering Provider: Vinayak Barragan D.O. PROCEDURE: US ABDOMEN LIMITED INDICATIONS: RUQ PAIN TECHNIQUE: Real-time scanning was performed of the abdominal and retroperitoneal organs, with image documentation. COMPARISON: None. FINDINGS: Liver: Liver is normal in size . Multiple hyperechoic foci within the hepatic parenchyma are present, largest of which measures 55 mm adjacent to the left portal vein.. Gallbladder: Wall is thickened at 5 mm Biliary ducts: Intrahepatic bile ducts are non-dilated. Extrahepatic bile duct caliber measures 4 mm. Normal is 6-7 mm or less in diameter, or 10 mm or less post-cholecystectomy. Pancreas: Visualized portions of the pancreas are sonographically normal. Miscellaneous: No free abdominal fluid. Right pleural effusion. IMPRESSION: 1. Gallbladder wall thickening, suggestive of cholecystitis. Clinical correlation recommended. 2. Multiple hyperechoic hepatic masses, possibly indicating hemangiomata. This could be further assessed with liver protocol MRI, if clinically indicated. Dictated by: Lasha Monteiro M.D. on 02/14/2020 at 21:34 Approved by: Lasha Monteiro M.D. on 02/14/2020 at 21:36 Critical Care Time Critical Care Time Critical Care Time: Yes Total Critical Care Time: 40 Attestation: I was immediately available in the department for consultation. This documentation has been reviewed and I agree with assessment and plan. Supervised by Vinayak Barragan DO Discharge Plan Departure Patient Disposition: [facility] Clinical Impression: Atrial fibrillation with rapid ventricular response, Acute acalculous cholecys titis, Acute hyponatremia Prescriptions: No Action multivitamin [Multiple Vitamins] 1 EACH tablet 1 tab PO QDAY Qty: 0 RF: 0 lorazepam 0.5 mg tablet 0.5 mg PO BID PRN (Reason: anxiety) Qty: 60 RF: 0 metoprolol succinate 25 mg tablet extended release 24 hr 25 mg PO DAILY RF: 0 Pradaxa 150 mg capsule 150 mg PO BID RF: 0 Referrals: Raghu Machado MD [Primary Care Provider] -
--- NOTE | 2020-02-14 19:46 | DI.RAD.S_ITS ---
PROCEDURE: XR CHEST 1V INDICATIONS: chest pain TECHNIQUE: One view of the chest was acquired. COMPARISON: [facility], , XR CHEST 1V, 02/05/2020, 1:15. FINDINGS: Surgical changes and devices: None. Lungs and pleura: Mild interstitial pulmonary opacity. No pneumothorax. Trace bilateral pleural effusions. Mediastinum: Mediastinal contours appear normal. Heart size is normal. Bones and chest wall: No suspicious bony lesions. Overlying soft tissues appear unremarkable. IMPRESSION: Mild edema versus atypical pneumonia. Small bilateral pleural effusions. Dictated by: Lasha Monteiro M.D. on 02/14/2020 at 20:26 Approved by: Lasha Monteiro M.D. on 02/14/2020 at 20:26
[2020-02-14 20:06] LABS: Add Manual Diff / Slide Review NO; Basophils Absolute Auto 100 /uL (0-100); Basophils Percent Auto 0.6 % (0-2); Eosinophils Absolute Auto 100 /uL (0-450); Eosinophils Percent Auto 0.7 % (2-4); Hematocrit 44.7 % (36-46); Lymphocytes Absolute Auto 5600 /uL (1100-4500); Lymphocytes Percent Auto 39.5 % (25-40); Mean Corpuscular HGB Conc 33.5 % (30-36); Mean Corpuscular Hemoglobin 31.1 PG (26-34); Monocytes Absolute Auto 800 /uL (0-900); Monocytes Percent Auto 5.8 % (3-14); Neutrophils Absolute Auto 7500 /uL (1500-7000); Neutrophils Percent Auto 53.4 % (50-75); Platelet Count 239 X10^3/uL (150-400); Red Blood Cell Count 4.81 X10^6/uL (4.0-5.2); Red Cell Distribution Width 14.5 % (11.6-14.8); White Blood Cell Count 14.1 X10^3/uL (4.5-11.0)
[2020-02-14 20:15] LABS: INR 1.6 (0.9-1.3); Prothrombin Time 17.7 SECONDS (10.1-12.7)
[2020-02-14 20:17] LABS: PTT Partial Thromboplastin Tim 52 SECONDS (26.4-36.2)
[2020-02-14 20:20] LABS: Alanine Aminotransferase 31 IU/L (<35); Albumin 4.3 g/dL (3.5-5.0); Albumin Globulin Ratio 1.9 (1.0-2.8); Alkaline Phosphatase 54 U/L (38-126); Aspartate Aminotransferase 42 IU/L (14-36); BUN Creatinine Ratio 14.3 (6-22); Bilirubin Total 1.9 mg/dL (0.2-1.3); Blood Urea Nitrogen 9 mg/dL (7-17); Calcium 8.9 mg/dL (8.4-10.2); Carbon Dioxide 14 mmol/L (22-32); Chloride 95 mmol/L (98-107); Creatine Kinase 69 U/L (30-135); Estimated Glomerular Filt Rate > 60.0 mL/min (>60); Globulin 2.3 g/dL (1.7-4.1); Glucose 130 mg/dL (70-100); HEMOLYSIS 27 (0-50); Lipase 73 U/L (23-300); Potassium 4.1 mmol/L (3.4-5.1); Sodium 125 mmol/L (137-145); Total Protein 6.6 g/dL (6.3-8.2)
[2020-02-14] MEDS: ESMOLOL 2.5 GM/250 ML IV.SOLN IV (20:22)
[2020-02-14 20:28] LABS: NT-proBNP (BNP-Adult 18+) 4260 pg/mL (<125)
--- NOTE | 2020-02-14 20:28 | PC.NURSE ---
Pt started on Esmolol drip; Loading dose given; rate currently set at 25mL/hr. Per Dr Barragan HR goal 110 Keep SBP >95
--- NOTE | 2020-02-14 20:46 | DI.US.S_ITS ---
PROCEDURE: US ABDOMEN LIMITED INDICATIONS: RUQ PAIN TECHNIQUE: Real-time scanning was performed of the abdominal and retroperitoneal organs, with image documentation. COMPARISON: None. FINDINGS: Liver: Liver is normal in size . Multiple hyperechoic foci within the hepatic parenchyma are present, largest of which measures 55 mm adjacent to the left portal vein.. Gallbladder: Wall is thickened at 5 mm Biliary ducts: Intrahepatic bile ducts are non-dilated. Extrahepatic bile duct caliber measures 4 mm. Normal is 6-7 mm or less in diameter, or 10 mm or less post-cholecystectomy. Pancreas: Visualized portions of the pancreas are sonographically normal. Miscellaneous: No free abdominal fluid. Right pleural effusion. IMPRESSION: 1. Gallbladder wall thickening, suggestive of cholecystitis. Clinical correlation recommended. 2. Multiple hyperechoic hepatic masses, possibly indicating hemangiomata. This could be further assessed with liver protocol MRI, if clinically indicated. Dictated by: Lasha Monteiro M.D. on 02/14/2020 at 21:34 Approved by: Lasha Monteiro M.D. on 02/14/2020 at 21:36
[2020-02-14] MEDS: PIPERACILLIN-TAZO 3.375 GM/50 ML FROZ.PIGGY IV (21:58)
[2020-02-14] MEDS: DILTIAZEM 125 MG/125 ML PIGGYBACK IV (22:21)
[2020-02-15] VITALS: BP 109/67; PULSE 124; RESP 18; O2SAT 94
[2020-02-15 00:05] VITALS: PULSE 124; RESP 20; O2SAT 94
[2020-02-15 00:10] VITALS: PULSE 121; RESP 23; O2SAT 94
[2020-02-15 00:15] VITALS: BP 112/82; PULSE 132; RESP 17; O2SAT 94
[2020-02-16 07:47] LABS: COVID19 -Nasal RAPID Negative (Negative)
== END 2020-02-15 00:35 | disposition short-term general hospital (02) ==
PROVIDERS: Emergency Provider Emergency Medicine; PCP Student in an Organized Health Care Education/Training Program
DX: I48.91 Unspecified atrial fibrillation (principal); Z79.01 Long term (current) use of anticoagulants; K81.0 Acute cholecystitis; E87.1 Hypo-osmolality and hyponatremia; R07.9 Chest pain, unspecified; R00.2 Palpitations; R06.00 Dyspnea, unspecified; R10.9 Unspecified abdominal pain; R00.0 Tachycardia, unspecified
CPT/HCPCS: 36415; 71045; 76705; 80053; 82550; 83690; 83880; 84484; 85025; 85610; 85730; 87635; 93005; 96365; 96366; 96367; 96368; 99285; 99291; 99292; J2543

== ENCOUNTER → 2020-03-29 11:48 | Outpatient (CLI) | payer OTHER, SELFPAY ==
[2020-03-29 13:11] LABS: Free T4, Direct Thyroxine 1.18 ng/dL (0.78-2.19)
== END ==
PROVIDERS: PCP Student in an Organized Health Care Education/Training Program; Referring Provider Nurse Practitioner Family; Visit Provider Nurse Practitioner Family
DX: Z51.81 Encounter for therapeutic drug level monitoring (principal); Z79.899 Other long term (current) drug therapy
CPT/HCPCS: 36415; 84439; 84443

== ENCOUNTER → 2020-05-05 07:09 | Outpatient (CLI) | payer OTHER, SELFPAY ==
[2020-05-05 08:37] LABS: Alanine Aminotransferase 24 IU/L (<35); Albumin 4.2 g/dL (3.5-5.0); Albumin Globulin Ratio 1.6 (1.0-2.8); Alkaline Phosphatase 45 U/L (38-126); Aspartate Aminotransferase 31 IU/L (14-36); BUN Creatinine Ratio 28.8 (6-22); Bilirubin Total 0.5 mg/dL (0.2-1.3); Blood Urea Nitrogen 19 mg/dL (7-17); Calcium 9.3 mg/dL (8.4-10.2); Carbon Dioxide 30 mmol/L (22-32); Chloride 106 mmol/L (98-107); Cholesterol 157 mg/dL (140-199); Estimated Glomerular Filt Rate > 60.0 mL/min (>60); Globulin 2.6 g/dL (1.7-4.1); Glucose 90 mg/dL (70-100); HDL Cholesterol 48 mg/dL (40-60); HEMOLYSIS < 15 (0-50); LDL Cholesterol Calculated 91 mg/dL (<100); Potassium 4.1 mmol/L (3.4-5.1); Sodium 138 mmol/L (137-145); Total Protein 6.8 g/dL (6.3-8.2); Triglycerides 89 mg/dL (35-150)
[2020-05-05 09:09] LABS: Free T4, Direct Thyroxine 1.04 ng/dL (0.78-2.19)
[2020-05-05 09:23] LABS: Thyroid Stimulating Hormone 4.06 uIU/mL (0.47-4.68)
== END ==
PROVIDERS: PCP Student in an Organized Health Care Education/Training Program; Referring Provider Nurse Practitioner Family; Visit Provider Nurse Practitioner Family
DX: Z51.81 Encounter for therapeutic drug level monitoring (principal); Z79.899 Other long term (current) drug therapy; E78.5 Hyperlipidemia, unspecified; I10 Essential (primary) hypertension; I48.91 Unspecified atrial fibrillation
CPT/HCPCS: 36415; 80053; 80061; 84439; 84443

== ENCOUNTER → 2020-11-23 08:17 | Outpatient (CLI) | payer OTHER, SELFPAY ==
--- NOTE | 2020-11-23 | DI.MG.S_ITS ---
BILATERAL DIGITAL SCREENING MAMMOGRAM 3D/2D WITH CAD: 11/23/2020 CLINICAL: Routine screening. Comparison is made to exams dated: 12/03/2018 mammogram and 04/26/2017 mammogram - [facility]. The tissue of both breasts is heterogeneously dense. This may lower the sensitivity of mammography. Current study was also evaluated with a Computer Aided Detection (CAD) system. No significant masses, calcifications, or other findings are seen in either breast. There has been no significant interval change. IMPRESSION: NEGATIVE There is no mammographic evidence of malignancy. A 1 year screening mammogram is recommended. This exam was interpreted at Station ID: [id number]. NOTE: For mammograms, a report in lay terms will be sent to the patient. Approximately 15% of breast malignancies will not be visualized mammographically. In the management of a palpable breast mass, a negative mammogram must not discourage biopsy of a clinically suspicious lesion. Electronically Signed By: Andreas medellin/jose l:11/23/2020 08:53:41 letter sent: Normal Exam ACR BI-RADS Category 1: Negative [id number]
== END ==
PROVIDERS: PCP Student in an Organized Health Care Education/Training Program; Referring Provider Student in an Organized Health Care Education/Training Program; Visit Provider Student in an Organized Health Care Education/Training Program
DX: Z12.31 Encounter for screening mammogram for malignant neoplasm of breast (principal)
CPT/HCPCS: 77063; 77067

== ENCOUNTER → 2022-05-30 11:45 | Outpatient (CLI) | payer OTHER, SELFPAY ==
[2022-05-30 12:56] LABS: Add Manual Diff / Slide Review NO; Basophils Absolute Auto 0 /uL (0-100); Basophils Percent Auto 0.5 % (0-2); Eosinophils Absolute Auto 100 /uL (0-450); Eosinophils Percent Auto 1.8 % (2-4); Hematocrit 34.8 % (36-46); Lymphocytes Absolute Auto 2200 /uL (1100-4500); Lymphocytes Percent Auto 30.7 % (25-40); Mean Corpuscular HGB Conc 34.3 % (30-36); Mean Corpuscular Hemoglobin 29.9 PG (26-34); Mean Corpuscular Volume 87.1 fL (80-100); Monocytes Absolute Auto 500 /uL (0-900); Monocytes Percent Auto 6.7 % (3-14); Neutrophils Absolute Auto 4200 /uL (1500-7000); Neutrophils Percent Auto 60.3 % (50-75); Platelet Count 175 X10^3/uL (150-400); Red Cell Distribution Width 13.7 % (11.6-14.8)
[2022-05-30 13:20] LABS: INR 1.2 (0.9-1.3); Prothrombin Time 13.2 SECONDS (10.1-12.7)
[2022-05-30 13:23] LABS: Fibrinogen 272 mg/dL (211-428); PTT Partial Thromboplastin Tim 33 SECONDS (26-36)
[2022-05-30 16:51] LABS: Alanine Aminotransferase 23 IU/L (<35); Albumin 4.7 g/dL (3.5-5.0); Albumin Globulin Ratio 1.9 (1.0-2.8); Alkaline Phosphatase 56 U/L (38-126); Aspartate Aminotransferase 29 IU/L (14-36); BUN Creatinine Ratio 13.6 (6-22); Bilirubin Total 0.5 mg/dL (0.2-1.3); Blood Urea Nitrogen 9 mg/dL (7-17); Carbon Dioxide 26 mmol/L (22-32); Chloride 102 mmol/L (98-107); Estimated Glomerular Filt Rate > 60 mL/min (>60); Globulin 2.5 g/dL (1.7-4.1); Glucose 89 mg/dL (70-100); HEMOLYSIS < 15 (0-50); Potassium 4.5 mmol/L (3.4-5.1); Sodium 140 mmol/L (137-145); Total Protein 7.2 g/dL (6.3-8.2)
== END ==
PROVIDERS: PCP Student in an Organized Health Care Education/Training Program; Referring Provider Physician Assistant Surgical; Visit Provider Physician Assistant Surgical
DX: I48.0 Paroxysmal atrial fibrillation (principal)
CPT/HCPCS: 36415; 80053; 85025; 85384; 85610; 85730

== ENCOUNTER → 2022-07-05 11:18 | Outpatient (CLI) | payer OTHER, SELFPAY ==
[2022-07-05 11:42] LABS: Add Manual Diff / Slide Review NO; Basophils Absolute Auto 0 /uL (0-100); Basophils Percent Auto 0.3 % (0-2); Eosinophils Absolute Auto 100 /uL (0-450); Eosinophils Percent Auto 1.7 % (2-4); Hematocrit 33.8 % (36-46); Hemoglobin 11.5 g/dL (12.0-16.0); Lymphocytes Absolute Auto 2200 /uL (1100-4500); Lymphocytes Percent Auto 28.4 % (25-40); Mean Corpuscular HGB Conc 34.1 % (30-36); Mean Corpuscular Hemoglobin 30.1 PG (26-34); Mean Corpuscular Volume 88.3 fL (80-100); Monocytes Absolute Auto 400 /uL (0-900); Monocytes Percent Auto 5.3 % (3-14); Neutrophils Absolute Auto 5000 /uL (1500-7000); Neutrophils Percent Auto 64.3 % (50-75); Platelet Count 216 X10^3/uL (150-400); Red Blood Cell Count 3.82 X10^6/uL (4.0-5.2); Red Cell Distribution Width 15.5 % (11.6-14.8); White Blood Cell Count 7.7 X10^3/uL (4.5-11.0)
[2022-07-05 11:52] LABS: Neutrophils Absolute Manual 4466 /uL (3000-5900); RBC Morphology Normal Morphology; Total Cells Counted 100
== END ==
PROVIDERS: PCP Student in an Organized Health Care Education/Training Program; Referring Provider Internal Medicine Cardiovascular Disease; Visit Provider Internal Medicine Cardiovascular Disease
DX: I48.0 Paroxysmal atrial fibrillation (principal)
CPT/HCPCS: 36415; 85007; 85025

== ENCOUNTER → 2022-09-24 07:35 | Outpatient (CLI) | payer OTHER, SELFPAY ==
--- NOTE | 2022-09-24 07:59 | DI.MG.S_ITS ---
BILATERAL DIGITAL SCREENING MAMMOGRAM 3D/2D WITH CAD: 09/24/2022 CLINICAL: Routine screening. Comparison is made to exams dated: 11/23/2020 mammogram, 12/03/2018 mammogram, and 04/26/2017 mammogram - [facility]. Both breasts are heterogeneously dense, which may obscure small masses (category c / 51-75% glandular tissue). Current study was also evaluated with a Computer Aided Detection (CAD) system. There is an asymmetry in the left breast middle depth medial region seen on the craniocaudal view only. This is more prominent. No other significant masses, calcifications, or other findings are seen in either breast. IMPRESSION: INCOMPLETE: NEEDS ADDITIONAL IMAGING EVALUATION The asymmetry in the left breast is indeterminate. Additional views with possible ultrasound are recommended. Based on the Tyrer Cuzick model (a risk assessment model) the patient's lifetime risk is 14.5% and her 10 year risk is 3.1%. According to the ACR, ACS, and NCCN guidelines, an annual breast MRI exam along with mammogram is recommended if the patient's lifetime risk is 20% or greater. This exam was interpreted at Station ID: [id number]. NOTE: For mammograms, a report in lay terms will be sent to the patient. Approximately 15% of breast malignancies will not be visualized mammographically. In the management of a palpable breast mass, a negative mammogram must not discourage biopsy of a clinically suspicious lesion. Electronically Signed By: Reginald Cruz M.D. slc/:09/24/2022 08:48:07 letter sent: Additional Imaging Needed ACR BI-RADS Category 0: Incomplete [id number]
== END ==
PROVIDERS: PCP Student in an Organized Health Care Education/Training Program; Referring Provider Student in an Organized Health Care Education/Training Program; Visit Provider Student in an Organized Health Care Education/Training Program
DX: Z12.31 Encounter for screening mammogram for malignant neoplasm of breast (principal)
CPT/HCPCS: 77063; 77067

== ENCOUNTER → 2022-10-11 08:45 | Outpatient (CLI) | payer OTHER, SELFPAY ==
--- NOTE | 2022-10-11 | DI.MG.S_ITS ---
UNILATERAL LEFT DIGITAL DIAGNOSTIC MAMMOGRAM 3D/2D WITH ADDITIONAL VIEWS: 10/11/2022 CLINICAL: Additional evaluation requested from prior study. Comparison is made to exams dated: 09/24/2022 mammogram, 11/23/2020 mammogram, and 12/03/2018 mammogram - [facility]. The left breast is heterogeneously dense, which may obscure small masses (category c / 51-75% glandular tissue). There is an asymmetry in the left breast middle depth medial region seen on the craniocaudal view only. This is more prominent. No other significant masses or calcifications are seen in the breast. IMPRESSION: INCOMPLETE: NEEDS ADDITIONAL IMAGING EVALUATION The asymmetry in the left breast is indeterminate. A targeted ultrasound is recommended and will immediately follow. Based on the Tyrer Cuzick model (a risk assessment model) the patient's lifetime risk is 14.5% and her 10 year risk is 3.1%. According to the ACR, ACS, and NCCN guidelines, an annual breast MRI exam along with mammogram is recommended if the patient's lifetime risk is 20% or greater. This exam was interpreted at Station ID: [id number]. NOTE: For mammograms, a report in lay terms will be sent to the patient. Approximately 15% of breast malignancies will not be visualized mammographically. In the management of a palpable breast mass, a negative mammogram must not discourage biopsy of a clinically suspicious lesion. Electronically Signed By: Reginald Cruz M.D. slc/:10/11/2022 09:31:42 ACR BI-RADS Category 0: Incomplete 3340F
--- NOTE | 2022-10-11 08:47 | DI.US.S_ITS ---
LIMITED ULTRASOUND OF LEFT BREAST: 10/11/2022 CLINICAL: Patient returns today to evaluate a focal asymmetry in the left breast. Comparison is made to exams dated: 10/11/2022 mammogram, 09/24/2022 mammogram, 11/23/2020 mammogram, and 12/03/2018 mammogram - [facility]. Color flow and real-time ultrasound of the left breast 7 o'clock region were performed. Manley scale images of the real-time examination were reviewed. There is a 1 cm x 1 cm x 0.7 cm simple cyst in the left breast at 7 o'clock middle depth 4 cm from the nipple. This simple cyst is anechoic. This correlates with mammography findings. Color flow imaging demonstrates that there is no vascularity present. IMPRESSION: BENIGN There is no sonographic evidence of malignancy. The 1 cm simple cyst in the left breast is benign. A 1 year screening mammogram is recommended. Exam findings were conveyed to the patient. This exam was interpreted at Station ID: [id number]. Electronically Signed By: Reginald Cruz M.D. slc/:10/11/2022 09:33:49 letter sent: Normal Exam Ultrasound BI-RADS: 2 Benign
== END ==
PROVIDERS: PCP Student in an Organized Health Care Education/Training Program; Referring Provider Student in an Organized Health Care Education/Training Program; Visit Provider Student in an Organized Health Care Education/Training Program
DX: R92.8 Other abnormal and inconclusive findings on diagnostic imaging of breast (principal); N60.02 Solitary cyst of left breast
CPT/HCPCS: 76642; 77065; G0279

== ENCOUNTER → 2022-12-17 10:58 | Outpatient (CLI) | payer OTHER, SELFPAY ==
--- NOTE | 2022-12-17 10:59 | DI.RAD.S_ITS ---
PROCEDURE: XR KNEE LT 3V INDICATIONS: Eval TECHNIQUE: 3 views of the knee were acquired. COMPARISON: None. FINDINGS: Bones: No fractures or dislocations. No suspicious bony lesions. Soft tissues: Moderate-sized joint effusion. No suspicious calcifications. IMPRESSION: 1. Joint effusion may indicate internal derangement. MRI is more useful for detecting soft tissue injuries. Dictated by: Leonela Alcazar M.D. on 12/17/2022 at 17:36 Approved by: Leonela Alcazar M.D. on 12/17/2022 at 17:37
== END ==
PROVIDERS: PCP Pediatrics; Referring Provider Pediatrics; Visit Provider Pediatrics
DX: M25.562 Pain in left knee (principal); M25.462 Effusion, left knee
CPT/HCPCS: 73562

== ENCOUNTER → 2023-01-28 07:22 | Outpatient (CLI) | payer OTHER, SELFPAY ==
--- NOTE | 2023-01-28 07:23 | DI.MRI.S_ITS ---
PROCEDURE: MR KNEE LT WO CON INDICATIONS: LEFT knee pain, abnl plain films with effusion, ligamentous tear? TECHNIQUE: Noncontrast sagittal PD fast spin echo and T2 fast spin echo with fat saturation, sagittal 3-D FLASH with fat saturation; coronal T1 spin echo and PD fast spin echo with fat saturation, and axial PD fast spin echo with fat saturation through the knee. COMPARISON: [facility], CR, XR KNEE LT 3V, 12/17/2022, 11:03. FINDINGS: Image quality: Excellent. Anterior Cruciate Ligament: Intact. Posterior Cruciate Ligament: Intact. Medial Collateral Ligament: Intact. Lateral Collateral Ligament: Intact. Medial Meniscus: Horizontal oblique tearing of the posterior horn and body of the medial meniscus extending to the mid to inner third of the tibial articular surface. Adjacent parameniscal cyst is seen measuring 5 x 4 x 3 mm. Lateral Meniscus: Intact. Medial and Lateral Tendons: The semimembranosus tendon insertions and meniscocapsular junction appear intact. Visualized portions of the pes anserinus tendons appear normal. No abnormal bursal fluid. The long and short heads of the biceps femoris tendon appear intact. The popliteus tendon appears intact. No signs of posterolateral corner injury. Iliotibial band appears normal. Anterior Structures: The quadriceps and patellar tendons appear intact. No patellar subluxation. No femoral trochlear dysplasia or ventral trochlear prominence. No edema in the infrapatellar fat pad. Bones: No acute trabecular bone injury or fracture. Medial Femorotibial Cartilage: Mild surface cartilage irregularity in the central weight-bearing portion of the medial femorotibial compartment. Lateral Femorotibial Cartilage: No focal cartilage defect. Patellofemoral Cartilage: The moderate partial-thickness cartilage irregularity is seen at the medial femoral trochlea and there is mild surface irregularity at the lateral patellar facet. Soft Tissues: Moderate joint effusion is seen. There is a trace medial popliteal cyst. Small amount of fluid is seen tracking inferiorly along the popliteus tendon sheath. The musculature surrounding the knee is normal in bulk. IMPRESSION: 1. Horizontal oblique tearing of the posterior horn and body of the medial meniscus extending to the middle third of the tibial articular surface with an adjacent 5 mm parameniscal cyst. 2. 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 3. Cruciate and collateral ligaments are intact. No acute trabecular bone injury. 4. Moderate joint effusion. Approved by: Paolo Guerrero M.D. on 01/28/2023 at 12:01
== END ==
PROVIDERS: PCP Pediatrics; Referring Provider Pediatrics; Visit Provider Pediatrics
DX: S83.242A Other tear of medial meniscus, current injury, left knee, initial encounter (principal); M25.562 Pain in left knee; M22.42 Chondromalacia patellae, left knee; M25.462 Effusion, left knee
CPT/HCPCS: 73721

== ENCOUNTER → 2023-07-09 12:38 | Outpatient (CLI) | payer OTHER, SELFPAY | LOC: ENDO 07-30 12:39 | PROVIDERS: Referring Provider Surgery; Visit Provider Surgery | DX: Z53.9 Procedure and treatment not carried out, unspecified reason (principal) ==

== ENCOUNTER → 2023-10-28 07:59 | Outpatient (CLI) | payer OTHER, SELFPAY ==
--- NOTE | 2023-10-28 08:00 | DI.MG.S_ITS ---
BILATERAL DIGITAL SCREENING MAMMOGRAM 3D/2D WITH CAD: 10/28/2023 CLINICAL: Routine screening. Comparison is made to exams dated: 10/11/2022 mammogram, 09/24/2022 mammogram, 11/23/2020 mammogram, and 12/03/2018 mammogram - [facility]. Both breasts are heterogeneously dense, which may obscure small masses (category c / 51-75% glandular tissue). Current study was also evaluated with a Computer Aided Detection (CAD) system. There is an oval high density asymmetry in the right breast middle depth central to the nipple seen on the craniocaudal view only. This is more prominent and increased in size. No other significant masses, calcifications, or other findings are seen in either breast. IMPRESSION: INCOMPLETE: NEEDS ADDITIONAL IMAGING EVALUATION The oval high density asymmetry in the right breast is indeterminate. Additional views with possible ultrasound are recommended. Based on the Tyrer Cuzick model (a risk assessment model) the patient's lifetime risk is 14.4% and her 10 year risk is 3.3%. According to the ACR, ACS, and NCCN guidelines, an annual breast MRI exam along with mammogram is recommended if the patient's lifetime risk is 20% or greater. This exam was interpreted at Station ID: [id number]. NOTE: For mammograms, a report in lay terms will be sent to the patient. Approximately 15% of breast malignancies will not be visualized mammographically. In the management of a palpable breast mass, a negative mammogram must not discourage biopsy of a clinically suspicious lesion. Electronically Signed By: Leonela medel/jose l:10/28/2023 16:10:05 letter sent: Additional Imaging Needed ACR BI-RADS Category 0: Incomplete 3340F
== END ==
LOC: MAMMO 07:59
PROVIDERS: PCP Family Medicine; Referring Provider Family Medicine; Visit Provider Family Medicine
DX: Z12.31 Encounter for screening mammogram for malignant neoplasm of breast (principal); R92.333 Mammographic heterogeneous density, bilateral breasts
CPT/HCPCS: 77063; 77067

== ENCOUNTER → 2023-11-06 12:00 | Outpatient (CLI) | payer OTHER, SELFPAY ==
--- NOTE | 2023-11-06 12:02 | DI.MG.S_ITS ---
UNILATERAL RIGHT DIGITAL DIAGNOSTIC MAMMOGRAM 3D/2D WITH ADDITIONAL VIEWS: 11/06/2023 CLINICAL: Additional evaluation requested from prior study. Comparison is made to exams dated: 10/28/2023 mammogram, 09/24/2022 mammogram, 11/23/2020 mammogram, and 12/03/2018 mammogram - [facility]. The right breast is heterogeneously dense, which may obscure small masses (category c / 51-75% glandular tissue). The asymmetry seen on recent screening mammogram did not persist with additional imaging and is consistent with superimposition of normal breast tissue. No significant masses, calcifications, or other findings are seen in the breast. IMPRESSION: NEGATIVE Superimposition of normal breast tissue. No mammographic evidence of malignancy. A 1 year screening mammogram is recommended. Findings and recommendations were conveyed to the patient during today's evaluation. Based on the Tyrer Cuzick model (a risk assessment model) the patient's lifetime risk is 14.4% and her 10 year risk is 3.3%. According to the ACR, ACS, and NCCN guidelines, an annual breast MRI exam along with mammogram is recommended if the patient's lifetime risk is 20% or greater. This exam was interpreted at Station ID: [id number]. NOTE: For mammograms, a report in lay terms will be sent to the patient. Approximately 15% of breast malignancies will not be visualized mammographically. In the management of a palpable breast mass, a negative mammogram must not discourage biopsy of a clinically suspicious lesion. Electronically Signed By: Dorita Louis M.D., Ph.D. eb/:11/06/2023 12:40:02 letter sent: Normal Exam ACR BI-RADS Category 1: Negative 3341F
== END ==
PROVIDERS: PCP Family Medicine; Referring Provider Family Medicine; Visit Provider Family Medicine
DX: R92.8 Other abnormal and inconclusive findings on diagnostic imaging of breast (principal); R92.331 Mammographic heterogeneous density, right breast
CPT/HCPCS: 77065; G0279

== ENCOUNTER 2024-05-20 01:56 | Emergency (ER) | payer OTHER, SELFPAY ==
[2024-05-20] VITALS (11 sets, daily range): BP systolic 106–133; BP diastolic 71–88; PULSE 61–80; RESP 13–20; TEMP 36.3; O2SAT 97–100; BMI 26.4
--- NOTE | 2024-05-20 02:24 | ED_ITS ---
HPI - General Adult General Chief complaint: Skin/Abscess/Foreign Body Stated complaint: 2heartcath ablasions in last two weeks,site notwel Time Seen by Provider: 05/20/24 02:11 Source: patient and family Mode of arrival: Ambulatory Limitations: no limitations History of Present Illness HPI narrative: 49-year-old female history of atrial fibrillation as well as atrial flutter who has had 5 ablation. Most recently patient had 1 she states afterwards they had quite a bit of difficulty with bleeding and patient had what sounds like was thrombi in her something similar placed at the site, she had sand bags and compression for at least 5 hours. She has had some persistent swelling but has had increasing redness and irritation and discomfort and tonight the site had a small punctate area that open and was draining a small amount of bloody and serosanguineous pink drainage. Patient has not had any fevers. No chest pain she has felt flutters intermittently but no fast heart rate. No shortness of breath. No nausea or vomiting. States she was stooling and urinating regularly. She has not had significant swelling down the entire leg she states she has had some bruising but not a lot. Patient states she was able to ambulate but uncomfortable. She was most comfortable lying flat. She was very uncomfortable trying to be seated with her hips flexed. Patient is on Eliquis for anticoagulation she was taking metoprolol as well as amiodarone for rate and rhythm control. She was not currently on an antibiotic. Patient has had uneventful course she had 2 attempted cardiac ablation at [facility] was given flecainide and diltiazem and had what sounds like either cardiac arrest or significant arrhythmia and she states had cardiac shock, CPR. Was transferred to [facility] where she was given Tikosyn had another episode of either cardiac arrest or significant arrhythmia and had electrical shock and CPR at that time. She states she has had 9 cardioversions in the past several weeks. She has had 5 ablation total in her lifetime with the most recent being on . Related Data Home Medications Medication Instructions Recorded Confirmed multivitamin (Multiple Vitamins 1 tab PO QDAY ##0 02/28/17 08/26/23 tablet) coenzyme Q10 10 mg capsule (Co 10 mg PO ONCE 08/07/23 08/26/23 Q-10) metoprolol succinate 50 mg 50 mg PO BID 08/26/23 08/26/23 tablet,extended release 24 hr Previous Rx's Medication Instructions Recorded losartan 25 mg tablet 12.5 mg (1/2 x 25 mg) PO DAILY #90 10/04/22 tabs lorazepam 1 mg tablet 1 mg PO DAILY PRN Palpitations #30 04/27/24 tabs cephalexin 500 mg capsule 500 mg PO Q6H 7 days #28 caps 05/20/24 Allergies Allergy/AdvReac Type Severity Reaction Status Date / Time diltiazem Allergy Verified 05/20/24 02:15 flecainide Allergy Verified 05/20/24 02:15 Review of Systems Review of Systems ROS Unobtainable: All systems reviewed & are unremarkable except as noted in HPI and below Patient History Medical History Left knee DJD Medial meniscus tear Chicken pox (~1980) Ovarian cyst Hypertension Surgical History History of cardiac radiofrequency ablation History of heart surgery Atrial fibrillation (~2015) Family History Brother Age: 43 History of palpitations Father Age: 77 Essential hypertension Atrial fibrillation, unspecified type Hyperlipidemia Mother Age: 75 History of skin cancer Grandfather No problems noted. Grandfather History of heart disease Cancer Grandmother Cancer Grandmother Stroke Social History Smoking Status: Never smoker Smoking Status: Never smoker alcohol intake frequency: a few times a week Substance Use Type: does not use Exam Narrative Exam Narrative: GENERAL: Alert and oriented x three, 49-year-old female in mild distress HEENT: Head normocephalic, atraumatic, EOMI, pupils reactive, face symmetric, moist mucous membranes NECK: Supple, full range of motion CARDIOVASCULAR: Regular rate and rhythm without murmurs, rubs or gallops. RESPIRATORY: Breath sounds equal bilaterally, no wheezes rales or rhonchi. ABDOMEN: Soft, nontender. Normoactive bowel sounds all 4 quadrants. No guarding or rebound, rigidity, no mass : No CVA tenderness EXTREMITIES: Normal range of motion, no clubbing. Patient has edema, swelling and warmth of the right inguinal area and into the right pudendal area. There is induration and fullness at the inguinal crease and tracking down about 4 cm and into the midline as well. Area is tender it is warm. There is puncture from the catheter is scabbed and appears healed but there is a small punctate site which has leaked a small amount of blood on check. No active bleed. No pulsatile mass. Neurovascularly intact. Cap refills less than 2 seconds with 2+ pedal pulses. No pallor, cyanosis of the lower extremity. NEUROLOGICAL: Cranial nerves II through XII grossly intact. Moving all extremities SKIN: Warm, dry, no petechiae, no rashes or lesions other than noted above. Initial Vital Signs Initial Vital Signs: Vital Signs Pulse Rate 80 05/20/24 02:05 Pulse Oximetry 97 05/20/24 02:05 Course Orders Ordered: ED Orders 05/20/24 02:20 Complete Blood Count AUTO DIFF Stat Comprehensive Metabolic Panel Stat Lactate (Lactic Acid) Stat MAG [Magnesium] Stat Procalcitonin Stat 05/20/24 02:33 EKG-12 Lead Stat 05/20/24 02:35 US extremity nonvasc lower rt Stat 05/20/24 02:40 Blood Culture Stat Wound Culture and Gram Stain Stat Discontinued Medications Hydrocodone Bitart/Acetaminophen (Hydrocodone/Acet 5/325 Prepack) 1 bottle MISC DIRECTED ONE Stop: 05/20/24 06:12 Last Admin: 05/20/24 06:22 Dose: 1 bottle Documented By: YAEL Fentanyl (Fentanyl 100 Mcg/2 Ml Inj) 50 mcg IV NOW ONE Stop: 05/20/24 03:07 Last Admin: 05/20/24 03:44 Dose: 50 mcg Documented By: ZENAIDA Ceftriaxone Sodium 2,000 mg/ (Sodium Chloride) 100 mls @ 200 mls/hr IV NOW ONE Stop: 05/20/24 02:36 Last Infusion: 05/20/24 04:15 Dose: Infused Documented By: Infusion: 05/20/24 03:43 Dose: 200 mls/hr Documented By: Infusion: 05/20/24 02:58 Dose: 0 mls/hr Documented By: Admin: 05/20/24 02:56 Dose: 200 mls/hr Documented By: DENISE Vancomycin HCl (Vancomycin) 1,000 mg in 200 mls @ 200 mls/hr IV NOW ONE Stop: 05/20/24 03:34 Last Infusion: 05/20/24 05:24 Dose: Infused Documented By: Admin: 05/20/24 04:16 Dose: 200 mls/hr Documented By: DENISE Vital Signs Vital signs: Vital Signs - 8 hr 05/20/24 02:05 05/20/24 02:06 05/20/24 02:06 Temperature Pulse Rate 80 79 Respiratory Rate Blood Pressure 133/88 Pulse Oximetry 97 99 Oxygen Delivery Method 05/20/24 02:15 05/20/24 02:30 05/20/24 02:30 Temperature 97.4 F L Pulse Rate 78 71 Respiratory Rate 16 Blood Pressure 133/88 123/87 Pulse Oximetry 100 99 Oxygen Delivery Method Room Air 05/20/24 03:00 05/20/24 03:00 05/20/24 03:30 Temperature Pulse Rate 67 66 Respiratory Rate 14 15 Blood Pressure 115/76 Pulse Oximetry 98 98 Oxygen Delivery Method 05/20/24 04:00 05/20/24 04:00 05/20/24 04:30 Temperature Pulse Rate 64 62 Respiratory Rate 16 17 Blood Pressure 116/77 Pulse Oximetry 98 100 Oxygen Delivery Method 05/20/24 04:30 05/20/24 05:00 05/20/24 05:00 Temperature Pulse Rate 61 Respiratory Rate 20 Blood Pressure 117/78 112/76 Pulse Oximetry 100 Oxygen Delivery Method 05/20/24 05:30 05/20/24 05:30 05/20/24 06:00 Temperature Pulse Rate 63 Respiratory Rate 17 Blood Pressure 107/74 106/71 Pulse Oximetry 98 Oxygen Delivery Method 05/20/24 06:00 Temperature Pulse Rate 61 Respiratory Rate 13 Blood Pressure Pulse Oximetry 97 Oxygen Delivery Method Room Air Medical Decision Making Lab Data 05/20/24 02:20 05/20/24 02:20 Labs: Lab Results 05/20/24 Range/Units 02:20 WBC 10.7 (4.5-11.0) X10^3/uL RBC 3.84 L (4.0-5.2) X10^6/uL Hgb 11.6 L (12.0-16.0) g/dL Hct 34.5 L (36-46) % MCV 89.9 (80-100) fL MCH 30.2 (26-34) PG MCHC 33.6 (30-36) % RDW 14.2 (11.6-14.8) % Plt Count 247 (150-400) X10^3/uL Neut % (Auto) 68.5 (50-75) % Lymph % (Auto) 22.2 L (25-40) % [place] % (Auto) 6.6 (3-14) % Eos % (Auto) 2.4 (2-4) % Baso % (Auto) 0.3 (0-2) % Neut # (Auto) 7300 H (1685-9674) /uL Lymph # (Auto) 2400 (1564-0981) /uL [place] # (Auto) 700 (0-900) /uL Eos # (Auto) 300 (0-450) /uL Baso # (Auto) 0 (0-100) /uL Sodium 134 L (137-145) mmol/L Potassium 4.0 (3.4-5.1) mmol/L Chloride 105 (98-107) mmol/L Carbon Dioxide 23 (22-32) mmol/L BUN 14 (7-17) mg/dL Creatinine 0.81 (0.52-1.04) mg/dL Estimated GFR > 60 (>60) mL/min BUN/Creatinine Ratio 17.3 (6-22) Glucose 108 H (70-100) mg/dL Lactate 1.1 (0.7-2.1) mmol/L Calcium 9.6 (8.4-10.2) mg/dL Magnesium 1.7 (1.6-2.3) mg/dL Total Bilirubin 0.6 (0.2-1.3) mg/dL AST 24 (14-36) IU/L ALT 21 (<35) IU/L Alkaline Phosphatase 58 (38-126) U/L Total Protein 6.7 (6.3-8.2) g/dL Albumin 3.8 (3.5-5.0) g/dL Globulin 2.9 (1.7-4.1) g/dL Albumin/Globulin Ratio 1.3 (1.0-2.8) Procalcitonin 0.052 (<0.5) ng/mL Imaging Data US lower extremity: Radiologist's Impression: Prominent subcutaneous, no evidence of abscess. Vessels were not able to be imaged secondary to edema. ECG Data Attestation: I personally reviewed and interpreted this ECG as follows: Prior ECG tracings: available for review Interpretation: Sinus rhythm rate of 69 GA 194 QRS 88 QTC of 428, nonspecific change. Patient has prior from 02/14/2020 which shows AFib RVR. MDM Narrative Medical decision making narrative: 49-year-old female status post heart catheterization for ablation most recently on she states the site has been red painful some increasing swelling noticed some bloody drainage this evening. No fevers or systemic symptoms noted. She has had some irregularity to her heart rate but no tachycardia or chest pain or shortness of breath. Patient's most recent procedure was not [facility], although had prior ablation at [facility] with Dr. Edwards. 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 And found to be in cardiogenic shock was transferred to [facility] for management was unable to be down titrated off her phenylephrine and lower dose nor epi, epinephrine and dobutamine patient was then initiated on dofetilide but developed AFib RVR along with torsade de pointes May 06 patient had a code blue called due to loss of pulse requiring defibrillation was transferred to the ICU and had repeat ablation on the with ongoing atrial flutter with repeat cardioversion of the and and now status post ablation on May 14 with improvement of symptoms. Patient's note states EF was 25% with severe mitral regurg. With suspected to be related to tachy mediated cardiomyopathy Vitals are overall appropriate. Labs show white count of 10.7 hemoglobin 11.6 was 11.5 on 07/05/2022 platelets are 247. Sodium is 134 potassium is 4 chloride 105 CO2 is 23 BUN 14 creatinine 0.81 glucose is 108 lactate 1.1 with a calcium 9.6 AST ALT are negative. Magnesium is 1.7 Procalcitonin is 0.052. Wound culture was sent. Blood cultures are pending. EKG sinus rhythm, rate of 69 nonspecific change. Ultrasound prominent subcutaneous edema, no evidence of abscess. Vessels were not imaged. Patient does have some signs consistent with cellulitis with punctate opening with small amount of drainage with covered with Rocephin and vancomycin and small dose of pain medication here in the department. On recheck patient states still some disomfort in groin but improved. States pain medicine was a bit helpful. Reviewed her findings. We will consult we will [facility] to make sure they do not want any additional imaging of the lower extremity suspect cellulitis based on patient's exam hematoma would be possible but patient does not have really any ecchymosis is more indurated erythematous and warm on exam. Spoke with Dr. Mooney cardiology; read patient's patient's recent stay. Discussed findings. They are okay not having any additional imaging of the vessels patient description and my examination likely infection felt appropriate to try 24 hours worth of oral antibiotics if not improving they would encourage her to come down to their facility. If she continues to improve to continue with antibiotics. On rechecked for patient she has had a little bit more drainage less than 5 mL. I am not able to express a any additional. Reviewed ultrasound and findings with patient and family. Discussed concerns for infection. After discussion with the patient we will attempt 24 hours oral antibiotics if she was not improving she is to return to [facility] for IV antibiotics as per cardiology's recommendations. We discussed if she feels it is unsafe for her to transport herself down or has significant worsening or other concerns can return [facility] emergency department. Discussed low threshold if not having any improvement, increasing pain fevers increasing drainage or any increasing redness or discomfort she is to return including during today. Patient and family feel comfortable with the plan. Dressing was placed here in the department. Patient ambulated in the department. Discharge Plan Departure Patient Disposition: Home Clinical Impression: H/O cardiac radiofrequency ablation, Cellulitis of groin, right Instructions: DI for Cellulitis -- Adult Activity Restrictions/Additional Instructions: I spoke with your cardiology team, reviewed your findings from today, you appear to be developing an infection at your catherization site. There is no abscess or fluid collection noted on your imaging. Take antibiotics as prescribed. They did ask that if you are not improving in 24 hours to come down directly to the emergency department for IV antibiotics. Take antibiotics until completed. You can take [place] 1-2 tablets every 6 hours as needed for pain. This medication can make you sleepy do not drive, perform hazardous activities or make any major decisions while taking it. This medication will make you constipated please take a stool softener once to twice daily until stools are soft and regular. Prescription sent to [facility] in [place]. Please return for fevers, increasing pain, increasing swelling, persistent or increasing drainage, increasing swelling of the whole leg, any numbness tingling or weakness, persistent drainage or other new or concerning changes. Prescriptions: New cephalexin 500 mg capsule 500 mg PO Q6H 7 Days Qty: 28 0RF No Action coenzyme Q10 [Co Q-10] 10 mg capsule 10 mg PO ONCE multivitamin [Multiple Vitamins] 1 EACH tablet 1 tab PO QDAY Qty: 0 losartan 25 mg tablet 12.5 mg PO DAILY Qty: 90 3RF lorazepam 1 mg tablet 1 mg PO DAILY PRN (Reason: Palpitations) Qty: 30 0RF metoprolol succinate 50 mg tablet extended release 24 hr 50 mg PO BID Referrals: Soo Hunt PA-C [Primary Care Provider] - Stand Alone Forms: Patient Portal/API/Survey
--- NOTE | 2024-05-20 02:31 | PC.NURSE ---
Pt had recent cardiac ablations with insertion site in right groin, right groin with erythemia, blood oozing from site. Painful to touch.
--- NOTE | 2024-05-20 02:35 | DI.US.S_ITS ---
PROCEDURE: US EXTREMITY NONVASC LOWER RT INDICATIONS: BLOODY DRAINAGE 6 DAYS POST CATH ABLATION, PAIN, SWELLING TECHNIQUE: Real-time scanning was performed of the right groin , with image documentation. COMPARISON: None. FINDINGS: Mild edema is noted. No fluid collections. Vessels are not seen secondary to depth. IMPRESSION: No fluid collections. Mild edema, correlate for cellulitis. Findings are concordant with preliminary interpretation provided by [facility]. Dictated by: George Lawrence M.D. on 05/20/2024 at 8:15 Approved by: George Lawrence M.D. on 05/20/2024 at 8:16
[2024-05-20 02:51] LABS: Add Manual Diff / Slide Review NO; Basophils Absolute Auto 0 /uL (0-100); Basophils Percent Auto 0.3 % (0-2); Eosinophils Absolute Auto 300 /uL (0-450); Eosinophils Percent Auto 2.4 % (2-4); Hematocrit 34.5 % (36-46); Hemoglobin 11.6 g/dL (12.0-16.0); Lymphocytes Absolute Auto 2400 /uL (1100-4500); Lymphocytes Percent Auto 22.2 % (25-40); Mean Corpuscular HGB Conc 33.6 % (30-36); Mean Corpuscular Hemoglobin 30.2 PG (26-34); Mean Corpuscular Volume 89.9 fL (80-100); Monocytes Absolute Auto 700 /uL (0-900); Monocytes Percent Auto 6.6 % (3-14); Neutrophils Absolute Auto 7300 /uL (1500-7000); Neutrophils Percent Auto 68.5 % (50-75); Platelet Count 247 X10^3/uL (150-400); Red Blood Cell Count 3.84 X10^6/uL (4.0-5.2); Red Cell Distribution Width 14.2 % (11.6-14.8); White Blood Cell Count 10.7 X10^3/uL (4.5-11.0)
[2024-05-20 02:54] LABS: Lactate (Lactic Acid) 1.1 mmol/L (0.7-2.1)
--- NOTE | 2024-05-20 02:54 | EKG_ITS ---
[place] [id number] [place] [id number] Test Date: 2024-05-20 Pat Name: Liss Cuevas Department: [facility] Room: Gender: Female [employer] Professor: : 1975 Requested By: Order Number: [id number] Reading MD: Levar Hammond Measurements Intervals [place] Rate: 69 P: 23 NM: 194 QRS: -12 QRSD: 88 T: 121 QT: 400 QTc: 428 Interpretive Statements Normal sinus rhythm T wave abnormality, consider lateral ischemia Electronically Signed On 05-20-2024 8:10:08 PST by Levar Hammond
[2024-05-20 02:55] LABS: Alanine Aminotransferase 21 IU/L (<35); Albumin 3.8 g/dL (3.5-5.0); Albumin Globulin Ratio 1.3 (1.0-2.8); Alkaline Phosphatase 58 U/L (38-126); Aspartate Aminotransferase 24 IU/L (14-36); BUN Creatinine Ratio 17.3 (6-22); Bilirubin Total 0.6 mg/dL (0.2-1.3); Blood Urea Nitrogen 14 mg/dL (7-17); Calcium 9.6 mg/dL (8.4-10.2); Carbon Dioxide 23 mmol/L (22-32); Chloride 105 mmol/L (98-107); Estimated Glomerular Filt Rate > 60 mL/min (>60); Globulin 2.9 g/dL (1.7-4.1); Glucose 108 mg/dL (70-100); HEMOLYSIS < 15 (0-50); Sodium 134 mmol/L (137-145); Total Protein 6.7 g/dL (6.3-8.2)
[2024-05-20] MEDS: cefTRIAXone 2,000 MG in SODIUM CHLORIDE 0.9% 100 ML 200 MG IV (02:56)
[2024-05-20 03:12] LABS: Procalcitonin 0.052 ng/mL (<0.5)
[2024-05-20] MEDS: fentaNYL 100 MCG/2 ML INJ 50 MCG IV (03:44)
[2024-05-20] MEDS: VANCOMYCIN 1,000 MG/200 ML PIGGYBACK 200 MG IV (04:16)
[2024-05-20 04:32] LABS: Magnesium 1.7 mg/dL (1.6-2.3)
[2024-05-20] MEDS: HYDROCODONE/ACET 5/325 PREPACK 1 BOTTLE MISC (06:22)
== END 2024-05-20 06:28 | disposition home or self-care (01) ==
PROVIDERS: Emergency Provider Emergency Medicine; PCP Physician Assistant
DX: L03.314 Cellulitis of groin (principal); I97.610 Postprocedural hemorrhage of a circulatory system organ or structure following a cardiac catheterization
CPT/HCPCS: 36415; 76882; 80053; 83605; 83735; 84145; 85025; 87040; 87070; 87077; 87147; 87186; 87205; 93005; 96365; 96367; 96375; 99284; J0696; J3010

== ENCOUNTER → 2024-11-02 08:01 | Outpatient (CLI) | payer OTHER, SELFPAY ==
--- NOTE | 2024-11-02 08:03 | DI.MG.S_ITS ---
MM screening mammo BI: 11/02/2024. BI-RADS: 1 CLINICAL: 49-year old female for bilateral screening mammogram. Tyrer-Cuzick lifetime risk of 14.2%. No personal or first-degree family history of breast cancer. PRIOR EXAMS: 11/06/2023, 10/28/2023, 10/11/2022, 09/24/2022, 11/23/2020, 12/03/2018. MAMMOGRAPHY TECHNIQUE: 2D and 3D (tomosynthesis) digital mammographic views obtained, with additional images as needed for full coverage. Current study was also evaluated with a Computer Aided Detection (CAD) system. DENSITY C. The breasts are heterogeneously dense, which may obscure small masses. MAMMOGRAPHY FINDINGS Bilateral: No suspicious mass, asymmetry, microcalcification, or other abnormality seen. IMPRESSION: * No evidence of malignancy. RECOMMENDATIONS Bilateral * Annual screening mammography. OVERALL ASSESSMENT CATEGORY BI-RADS-1: Negative. [employer] recommends annual screening mammography beginning at age 40 for women with average risk of breast cancer. ELECTRONICALLY SIGNED: Reginald Cruz M.D. on 11/02/2024 at 11:08:45 AM PT Interpreting Station ID: [id number]
== END ==
LOC: MAMMO 08:02
PROVIDERS: PCP Physician Assistant; Referring Provider Physician Assistant; Visit Provider Physician Assistant
DX: Z12.31 Encounter for screening mammogram for malignant neoplasm of breast (principal); R92.333 Mammographic heterogeneous density, bilateral breasts
CPT/HCPCS: 77063; 77067